=== PATIENT | female | born 1965 | race Caucasian/White ===

== ENCOUNTER 2025-09-15 08:48 | Emergency (ER) | payer MEDICARE, MEDICAID, SELFPAY ==
[2025-09-15 09:00] VITALS: BP 133/75; PULSE 57; RESP 20; TEMP 36.7; O2SAT 99
--- OUTSIDE RECORDS SUMMARY | 2025-09-15 09:07 | XMS_ITS | Clinical Summary ---
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 Role Phone Iam Garcia MD Primary Care Provider [phone] Allergies Active Allergy Reactions Criticality Noted Date Comments Penicillins Hives,Rash Medium Reaction: Hives, Skin Rash, Medications blood-glucose meter kit Use as directed to test blood sugars daily 1 each 10/04/20 18 Active albuterol 2.5 mg /3 mL (0.083 %) nebulizer solution Take 3 mL (2.5 mg total) by nebulization 4 (four) times a day as needed for wheezing or shortness of breath 125 vial 11 10/28/20 20 Active cetirizine (ZyrTEC) 10 mg tablet Take 1 tablet (10 mg total) by mouth daily Active blood glucose diagnostic (OneTouch Ultra Blue Test Strip) stripIndications:T ype 2 diabetes mellitus without complication, without long-term current use of insulin (HCC) Use to test blood sugar once daily. Dx: E11.9. Non insulin dependent 100 each 3 02/17/20 22 Active OneTouch Delica Plus Lancet 33 gauge miscIndications:Ty pe 2 diabetes mellitus without complication, without long-term current use of insulin (HCC) Use to check blood sugar once daily. Dx: E11.9 Non insulin Dependent 100 each 3 07/19/20 24 Active blood glucose diagnostic stripIndications:T ype 2 diabetes mellitus without complication, without long-term current use of insulin (HCC) Use to test blood sugars once daily 100 each 20 24 Active triamcinolone (KENALOG) 0.1 % creamIndications:R cabrera Apply topically 3 (three) times a day for 10 days 45 g 09/11/20 24 Active Additional Information Patient not taking.Reported on 06/25/2025 metFORMIN XR (GLUCOPHAGE XR) 500 mg 24 hr tablet TAKE 1 TABLET(500 MG) BY MOUTH DAILY 90 tablet 3 09/25/20 24 Active fluticasone propion-salmeteroL (ADVAIR DISKUS) 250-50 mcg/dose diskus inhaler Inhale 1 puff 2 (two) times a day Rinse mouth with water after use. Do not swallow. 1 each 11 09/25/20 Active Additional Information Patient not taking.Reported on 06/25/2025 fluticasone furoate-vilanteroL (Breo Ellipta) 200-25 mcg/dose diskus inhaler Inhale 1 puff daily Rinse mouth with water after use. Do not swallow. 60 each 09/25/20 Active Additional Information Patient not taking.Reported on 06/25/2025 SITagliptin phosphate (Januvia) 100 mg tabletIndications: Type 2 diabetes mellitus without complication, without long-term current use of insulin (HCC) Take 1 tablet (100 mg total) by mouth daily 90 tablet 3 04/04/20 25 Active meloxicam (MOBIC) 15 mg tabletIndications: Osteoarthritis Take 1 tablet (15 mg total) by mouth daily 30 tablet 11 05/01/20 25 026 Active atorvastatin (LIPITOR) 20 mg tabletIndications: Type 2 diabetes mellitus with hyperlipidemia (HCC) TAKE 1 TABLET(20 MG) BY MOUTH DAILY 100 tablet 1 06/07/20 25 Active diclofenac sodium (VOLTAREN) 1 % gelIndications:Art hritis of right knee APPLY 4 GRAMS TOPICALLY TO THE AFFECTED AREA FOUR TIMES DAILY 200 g 07/01/20 25 Active Active Problems Problem Noted Date Diagnosed Date Medicare annual wellness visit, subsequent 10/24 Assessment & Plan (10/24/2024 9:08 AM MARKETING PR INTERN): In regard to health maintenance, Colonoscopy- Declined Mammogram- UTD DM-annual visual examination and podiatry visits every 3 months advised. Influenza vaccine- declined Pneumococcal vaccine- declined Shingrix vaccine- declined ASCVD risk: 4.6% Eat a healthy diet: focus on lean meats and proteins, more fruits, vegetables and whole grains and low in sugars and fats. Limit red meat and avoid processed meat. Maintain a healthy weight; avoid being overweight. Aim for a normal body mass index (BMI) of 18.5-24.9. Help learning to eat healthier, we can set up appointment with auricular acupuncturist/medical appointment clerk. Have an active lifestyle, strive for 30 minutes of moderate exercise 5 times a week and strength or resistance training at least twice a week. Use broad-spectrum (UVA+UVB) sunscreen with SPF 30 or greater, is water resistant, limit time spent in the sun (10 am-4pm), wear hat, wear UV protective clothing, wear sunglasses. Never use a tanning bed. Skin that was irradiated may be more sensitive over your lifetime. Limit alcohol intake, 1 drink per day for a woman and 2 drinks per day for a man. Laceration of skin of forehead 08/23/2024 Assessment & Plan (08/23/2024 12:59 PM CDT): Instructed patient to avoid using l iquid bandage . Keep area clean and protected. Can use Aquaphor once area is more scabbed. Once healed stressed the need to use SPF to avoid scarring. Encounter for colorectal cancer screening 2022 Assessment & Plan (10/06/2023 8:14 AM MARKETING PR INTERN): Discussed colorectal cancer screening guidelines. No family history of colon cancers. Declines screening with colonoscopy; aware that it is gold standard for CRC screening. Patient is agreeable to cologuard. Aware that kit will be mailed with directions and to call office if not received in 2 weeks. To call office if no results received within 2 weeks of test submission. Foreign body of right ear 10/06/2023 Assessment & Plan (04/09/2024 8:32 AM CDT): Ismay/orange foreign body versus mass obstructing view of right TM. Nontender. No drainage. Denies any issues with hearing. Updated referral to ENT Assessment & Plan (10/06/2023 8:40 AM MARKETING PR INTERN): Probable ear plug? Right pink object in right canal. No surrounding erythema or drainage. TM appears intact. Unable to remove in office. Referral placed to ENT. Kidney stone 10/03/2022 Assessment & Plan (10/03/2022 2:24 PM MARKETING PR INTERN): Evaluated in ER 08/16/22, left ureter stone. Patient reports passing stone the next day. No further colic/pain/back pain or fevers. No urinary symptoms. Type 2 diabetes mellitus wit hout complication, without long-term current use of insulin 09/28/2021 Assessment & Plan (04/24/2025 10:16 AM CDT): Lab Results Component Value Date HGBA1C 7.6 (H) 04/10/2025 HGBA1C 7.4 (H) 09/25/2024 HGBA1C 7.8 (H) 03/29/2024 Slight increase in A1C admits to not working on diet like she should. Will continue on Januvia and Metformin. Will continue to monitor. Orders: Albumin Creatinine Ratio, Urine; Future Comprehensive metabolic panel; Future CBC with auto differential; Future Hemoglobin A1c; Future Assessment & Plan (10/24/2024 9:07 AM MARKETING PR INTERN): A1C improving but not at goal yet. Will continue to monitor. Will continue on Januvia and Metformin. Lab Results Component Value Date HGBA1C 7.4 (H) 09/25/2024 HGBA1C 7.8 (H) 03/29/2024 HGBA1C 7.2 (H) 07/04/2023 Assessment & Plan (04/09/2024 8:31 AM CDT): Not at goal, A1c = 7.8 %. Reviewed diet and exercise recommendations. Blood pressure is well controlled, 128/88. LDL cholesterol at goal. Scheduled for eye exam tomorrow at [facility]. Current medications Januiva 100 Metformin 500 once daily. Will increase metformin to 500 mg twice daily. Repeat labs in 6 months. Assessment & Plan (10/06/2023 8:33 AM MARKETING PR INTERN): Lab Results Component Value Date HGBA1C 7.2 (H) 07/04/2023 HGBA1C 8.1 (H) 03/30/2023 HGBA1C 6.7 10/03/2022 Periodically checking BG. Denies any symptoms of hypo/hyperglycemia. Monofilament exam completed today. Assessment & Plan (04/04/2023 1:45 PM CDT): Worsening; encouraged to work toward healthy lifestyle and diet changes as previously following. Lab Results Component Value Date HGBA1C 8.1 (H) 03/30/2023 HGBA1C 6.7 10/03/2022 HGBA1C 7.4 (H) 05/04/2022 Re-start metformin 500 mg once daily and continue Januvia 100 mg daily. Patient to check blood sugar daily and will repeat labs in 3 months. Current on eye exam. Blood pressure and cholesterol well controlled. Assessment & Plan (10/03/2022 2:27 PM MARKETING PR INTERN): Lab Results Component Value Date HGBA1C 6.7 10/03/2022 HGBA1C 7.4 (H) 05/04/2022 HGBA1C 6.7 09/28/2021 Has been working on diet, cut out sodas. Has increased exercise activity. Checking blood sugar periodically, average readings 90's-126 per glucometer. Continues januvia. Assessment & Plan (01/27/2022 5:57 PM CDT): Patient has continued Januvia. She denies any neuropathy. A1c has been at goal of <7%. Aware to schedule eye exam. Discussed changing medication to medication that provides additional benefit of weight loss, such as semaglutide. Patient would like to defer until her follow-up appointment. Lab Results Component Value Date HGBA1C 6.7 09/28/2021 HGBA1C 6.7 (H) 04/27/2021 HGBA1C 6.1 01/12/2021 Assessment & Plan (09/28/2021 8:42 AM MARKETING PR INTERN): Periodically checks BS. Doing well on januvia. Up to date on eye exam. Checking feet daily, denies neuropathy. Will continue to follow A1C. Lab Results Component Value Date HGBA1C 6.7 09/28/2021 HGBA1C 6.7 (H) 04/27/2021 HGBA1C 6.1 01/12/2021 Abnormal mammogram of right breast 01/03/2019 Type 2 diabetes mellitus with hyperlipidemia Assessment & Plan (04/24/2025 10:16 AM CDT): Stable and well controlled. Will continue on Atorvastatin. Will continue to monitor. Orders: Lipid panel; Future Assessment & Plan (10/24/2024 9:06 AM MARKETING PR INTERN): Lipid panel stable and well controlled with LDL at goal of <70. Will continue to take Atorvastatin. Will continue to monitor. Assessment & Plan (04/09/2024 8:29 AM CDT): Results for orders placed or performed in visit on 04/09/24 POCT lipid panel Result Value Ref Range Cholesterol, POC 123 mg/dL HDL, POC 36 mg/dL Triglycerides, POC 95 mg/dL LDL, Direct, POC 67 mg/dL Chol/HDL Ratio, POC 3.4 Non-HDL Cholesterol, POC 87 mg/dL Cholesterol Total, POC 123 mg/dL Stable, continue statin 20 mg daily. Refilled medication today. Assessment & Plan (10/06/2023 8:18 AM MARKETING PR INTERN): Stable; continue atorvastatin 20 mg daily. Assessment & Plan (04/04/2023 1:47 PM CDT): Taking atorvastatin 20 mg daily as prescribed. LDL=63 Assessment & Plan (10/03/2022 2:37 PM MARKETING PR INTERN): Doing well on atorvastatin 20 mg daily. Cholesterol well controlled on current regimen, patient is taking medication as prescribed and denies any SE's. Results for orders placed or performed in visit on 10/03/22 POCT hemoglobin A1c Result Value Ref Range Hemoglobin A1C, POC 6.7 POCT lipid panel Result Value Ref Range Cholesterol, POC 115 mg/dL HDL, POC 42 mg/dL Triglycerides, POC 134 mg/dL LDL, Direct, POC 46 mg/dL Chol/HDL Ratio, POC 1.1 Non-HDL Cholesterol, POC 73 mg/dL Cholesterol Total, POC 115 mg/dL Assessment & Plan (01/27/2022 5:43 PM CDT): Continue atorvastatin 20 mg daily. Patient denies any medication side effects, lipids have been well controlled. Will repeat lipid panel prior to next office visit in 3 months. Assessment & Plan (09/28/2021 8:54 AM MARKETING PR INTERN): Doing well on atorvastatin daily. Reviewed previous lipids, discussed diet and exercise recommendations. Assessment & Plan (12/26/2018 4:49 PM MARKETING PR INTERN): Diabetes is improving with treatment. Continue current treatment regimen. Diabetes will be reassessed in 3 months. Patient is losing weight, and following a diabetic diet. Her blood sugars are improving. Refused influenza vaccine 12/26/2018 Exposure to mold 12/26/2018 Assessment & Plan (12/26/2018 4:49 PM MARKETING PR INTERN): Patient reports exposure to mold at her house for approximately 1 year. She does not have any symptoms at this time. She did state that she had pneumonia several months back but symptoms have resolved. Since patient is not having any symptoms we will continue to monitor no further testing at this time. If she develops respiratory problems then I would recommend some testing for mold. Encounter for annual wellness exam in Medicare p atient 12/26/2018 Assessment & Plan (10/06/2023 8:39 AM MARKETING PR INTERN): Preventive exam; reviewed recommended preventive screenings and vaccinations. Encourage annual flu vaccine. -Cologuard ordered -encouraged to schedule a well-woman exam -mammogram ordered today Assessment & Plan (10/03/2022 2:23 PM MARKETING PR INTERN): Preventive exam; reviewed recommended preventive screenings and vaccinations. Encourage annual flu vaccine. Wear sunscreen/protective clothing when outdoors. Assessment & Plan (09/28/2021 8:42 AM MARKETING PR INTERN): Preventive exam; reviewed recommended preventive screenings and vaccinations. Encourage annual flu vaccine. Wear sunscreen/protective clothing when outdoors. Bronchitis 10/23/2018 Assessment & Plan (10/23/2018 12:32 PM MARKETING PR INTERN): Take your antibiotic as directed You may take a cough suppressant to calm your cough (dayquil, delsym, or nyquil) If your cough is productive or you have tight chest congestion with thick mucus- you can use a cough expectorant like Mucinex Benadryl/Zyrtec can be used to dry up a runny nose along with a nasal spray like azelastine or mometasone.. The use of Chlorpheniramine (antihistamine) plus pseudoephedrine (decongestant) has been proven to be helpful. Avoid environmental triggers and allergen Drink plenty of fluids and get plenty of rest Tylenol/Motrin for pain/fever If you are not better in the next 5 days, follow up w PCP. Asthma 09/28/2016 Assessment & Plan (04/24/2025 10:16 AM CDT): Stable and well controlled. Will continue to monitor. Continues on Albuterol PRN nebulizer and Breo Ellipta. Assessment & Plan (10/24/2024 9:06 AM MARKETING PR INTERN): Stable and well controlled. Denies any recent flare ups. Albuterol is rarely used. Assessment & Plan (04/09/2024 8:30 AM CDT): Doing well with Advair maintenance therapy. Denies any recent exacerbation, no recent use of albuterol inhaler. Assessment & Plan (04/04/2023 1:27 PM CDT): No recent exacerbation, has not required use of rescue inhaler. Assessment & Plan (10/03/2022 2:29 PM MARKETING PR INTERN): Using advair seasonally. No recent exacerbations, need for albuterol or night time coughing. Assessment & Plan (09/28/2021 8:58 AM MARKETING PR INTERN): Encouraged use of maintenance inhaler, reminded to rinse mouth after use. Lungs CTA on exam. No ongoing respiratory symptoms following recent covid infection. Will continue to monitor. Encouraged covid-19 and annual influenza vaccination. Assessment & Plan (10/23/2018 12:36 PM MARKETING PR INTERN): Asthma is worsening. The patient is experiencing frequent daytime asthma symptoms. She is experiencing frequent nighttime asthma symptoms. Asthma information handout given. Continue Advair daily Neb treatments with Albuterol Class 3 severe obesity due t o excess calories with serious comorbidity and body mass index (BMI) of 45.0 to 49.9 in adult 09/02/2016 Overview (02/10/2017): Morbid obesity due to excess calories Assessment & Plan (04/24/2025 10:16 AM CDT): Encouraged heart healthy diet and lifestyle. Advised 150 min/week of aerobic exercise. Assessment & Plan (10/24/2024 9:05 AM MARKETING PR INTERN): Encouraged heart healthy diet and lifestyle. Advised 150 min/week of aerobic exercise. Assessment & Plan (08/23/2024 1:00 PM CDT): Encourage healthy diet and regular physical activity. Assessment & Plan (04/04/2023 1:46 PM CDT): Re-gained 9 lbs, will continue to monitor. Stressed need to continue to follow diet changes and increase exercise. Assessment & Plan (10/03/2022 2:40 PM MARKETING PR INTERN): Has lost 12 lbs this past year. Working on diet changes. Discussed healthy diet and importance of regular physical activity. Assessment & Plan (01/27/2022 5:55 PM CDT): Discussed healthy diet and importance of regular physical activity. Assessment & Plan (09/28/2021 8:58 AM MARKETING PR INTERN): Discussed healthy diet and importance of regular physical activity. Assessment & Plan (01/09/2019 12:05 PM MARKETING PR INTERN): Obesity is improving with lifestyle modifications. Discussed the patient's BMI. The BMI is above average; BMI management plan is completed. General weight loss/lifestyle modification strategies discussed (elicit support from others; identify saboteurs; non-food rewards, etc). Assessment & Plan (12/26/2018 11:21 AM MARKETING PR INTERN): Obesity is improving with lifestyle modifications. Discussed the patient's BMI. The BMI is above average; BMI management plan is completed. General weight loss/lifestyle modification strategies discussed (elicit support from others; identify saboteurs; non-food rewards, etc). Diet= low-carb Limit white bread, rice, pasta, potatoes, juice, energy drinks, coffee creamers with sugar, sugar sodas, candy, cake, cookies, ice cream. Be more careful with starchy vegetables like corn, carrots, and fruits. Stay away from processed foods, fast foods, fried foods. The cornerstone of this diet is lean grilled meats, green salads or cooked greens, fat-free milk, cottage cheese, nuts like [id number], protein bars with 10-15 g of protein and 20-30 g of carbohydrate. Choose whole grain breads and pastas, brown rice, sweet potatoes, read onions--these whole grains absorb more slowly thus blood sugar does not surge so high so quickly. Avoid drinking juice, eat a piece of fruit instead. Resolved Problems Problem Noted Date Diagnosed Date Resolved Date Left ear impacted cerumen 12/26/2018 Assessment & Plan (01/09/2019 10:18 AM MARKETING PR INTERN): Excessive Ear Wax Prevention Cerumen accumulation or excessive ear wax can cause symptoms like-Hearing loss ?Earache ?Ear fullness ?Itchiness ?Reflex cough ?Dizziness ?Tinnitus Normal ears use a cotton ball dipped in mineral oil, olive oil, Baby oil, or Braidwood oil and place in the external canal for 10 to 20 minutes once per week. For Chronic cerumen impactions can perform on a scheduled baseis-3 drops of olive oil or Baby oil in each ear, three times daily for Three weeks, Three times per year. Routine cleaning of the ears by a health professional every 6 to 12 months is also suggested. Patients should be instructed that chronic use of cotton swabs or cerumenolytics should not be performed. Cerumenolytics are safe to use in patients with NO history of infections, perforations, or otologic surgery. Cerumenolytics should be avoided if tympanic membrane damage is suspected. If a patient has a history of drainage from the ear, ear pain, or frequent ear infections earlier in life, then the tympanic membrane may be impaired and cerumenolytics should not be employed. If safe for you, use Debrox drops, Hydrogen peroxide or Benzalkonium Chloride softening agents Assessment & Plan (12/26/2018 11:17 AM MARKETING PR INTERN): Excessive Ear Wax Prevention Cerumen accumulation or excessive ear wax can cause symptoms like-Hearing loss ?Earache ?Ear fullness ?Itchiness ?Reflex cough ?Dizziness ?Tinnitus Normal ears use a cotton ball dipped in mineral oil, olive oil, Baby oil, or Braidwood oil and place in the external canal for 10 to 20 minutes once per week. For Chronic cerumen impactions can perform on a scheduled baseis-3 drops of olive oil or Baby oil in each ear, three times daily for Three weeks, Three times per year. Routine cleaning of the ears by a health professional every 6 to 12 months is also suggested. Patients should be instructed that chronic use of cotton swabs or cerumenolytics should not be performed. Cerumenolytics are safe to use in patients with NO history of infections, perforations, or otologic surgery. Cerumenolytics should be avoided if tympanic membrane damage is suspected. If a patient has a history of drainage from the ear, ear pain, or frequent ear infections earlier in life, then the tympanic membrane may be impaired and cerumenolytics should not be employed. If safe for you, use Debrox drops, Hydrogen peroxide or Benzalkonium Chloride softening agents Other constipation 12/26/2018 1 Assessment & Plan (12/26/2018 4:48 PM MARKETING PR INTERN): Patient reports being constipated since Monday. She states that she is unsure if it is because of her diet changing with her diabetes. She denies abdominal pain, nausea, vomiting. She is passing gas and belching fine. Her abdomen is not distended firm or hard. Recommend that she increase her fluid intake, try some juice like apple, grave, or prune juice. Try drinking hot tea or hot coffee. Viral upper respiratory tract infection 12/29/2016 12/26/2018 Overview (02/10/2017): Viral upper respiratory tract infection Wheezing 12/29/2016 12/26/2018 Overview (02/10/2017): Wheezing Acute streptococcal pharyngitis 12/29/2016 09/28/2021 Overview (02/10/2017): Strep throat Chronic mucoid otitis media 09/02/2016 09/28/2021 Overview (02/10/2017): Bilateral otitis media with effusion Acute upper respiratory infection 09/02/2016 09/28/2021 Overview (02/10/2017): Upper respiratory infection, acute Encounters Date Type Department Care Team Description 06/30/2025 3:11 PM CDT - 06/30/2025 11:59 PM CDT Hospital Encounter [facility] [address] [place] [address] Screening mammogram, encounter for Discharge Disposition: Discharge to home or self care 06/25/2025 3:00 PM CDT Office Visit [facility] [address] [place] [address] [place] [id number] Jo Ann Sims PA Primary osteoarthritis of right knee (Primary Dx) 06/25/2025 7:43 AM CDT - 06/25/2025 11:59 PM CDT Hospital Encounter [facility] [address] [place] [address] [address], [place] [address] Discharge Disposition: Discharge to home or self care 06/25/2025 7:43 AM CDT - 06/25/2025 11:59 PM CDT Hospital Encounter [facility] [address] [place] [address] [address], [place] [address] Discharge Disposition: Discharge to home or self care from Last 3 Months Immunizations Immunization Administration Dates Next Due Influenza, Quadrivalent, Spl it, Preservative Free, Intramuscular 07/23/2015 Influenza, Unspecified 04/24/2025(Deferr ed: Patient Refused),04/24/2025(Deferred: Patient Refused),10/24/2024(Deferred: Patient Refused),08/23/2024(Deferred: Patient Refused),07/07/2024(Deferred: Patient Refused),07/07/2024(Deferred: Patient Refused),04/09/2024(Deferred: Patient Refused),10/06/2023(Deferred: Patient Refused),08/06/2023(Deferred: Patient Refused),07/07/2023(Deferred: Patient Refused),10/03/2022(Deferred: Patient Refused),08/06/2022(Deferred: Patient Refused),08/06/2022(Deferred: Patient Refused),08/06/2022(Deferred: Patient Refused),05/20/2022(Deferred: Patient Refused),11/06/2021(Deferred: Patient Refused),08/06/2021(Deferred: Patient Refused),08/06/2021(Deferred: Patient Refused),07/07/2021(Deferred: Patient Refused),04/21/2021(Deferred: Patient Refused),01/12/2021(Deferred: Patient Refused),11/06/2020(Deferred: Patient Refused),12/09/2019(Deferred: Patient Refused),11/06/2019(Deferred: Patient Refused),11/06/2019(Deferred: Patient Refused),11/06/2019(Deferred: Patient Refused),10/06/2019(Deferred: Patient Refused),01/09/2019(Deferred: Patient Refused),12/26/2018(Deferred: Patient Refused),11/06/2018(Deferred: Patient Refused),08/21/2018(Deferred: Patient Refused),11/13/2017(Deferred: Patient Refused),11/06/2017(Deferred: Patient Refused),11/06/2017(Deferred: Patient Refused) Pneumococcal Polysaccharide PPV23 09/17/2014 Surgical History Surgery Date Site/Laterality Comments NO PAST SURGERIES Medical History Medical History Date Comments Severe persistent asthma 2004 Asthma, severe persistent; Comments: SAMAN 09/17/2014 - Hx Other Medical kidney stones; Comments: LEXII 10/04/2016 - Diabetes mellitus Chronic mucoid otitis media Obesity Family History Medical History Relation Name Comments Diabetes Brother Diabetes mellit us; Other Father hip replacement s; /knee replacements; Hypertension Mother Hypertension; Cancer Other 1 Family history of Cancer, unknown; Arthritis Other 2 Family history of Arthritis; Breast cancer Paternal cousin Thyroid disease Sister Thyroid diso rder; Ovarian cancer Neg Hx Thyroid cancer Neg Hx Relation Name Status Comments Brother Father Alive Mother Alive Other 1 Other 2 Paternal cousin Sister Social History Tobacco Use Types Packs/Day Years Used Date Smoking Tobacco: Never Smokeless Tobacco: Never Tobacco Cessation:Counseling Given: Not Answered Alcohol Use Standard Drinks/Week Comments No 0 (1 standard drink = 0.6 oz pur e alcohol) [facility] [employer] Answer Date Recorded In the past 12 months has [employer], gas, oil, or water [employer] threatened to shut off services in your home? No 04/24/2025 Humiliation, Afraid, Rape, and Kick questionnair e Answer Date Recorded Within the last year, have y ou been afraid of your partner or ex-partner? No 04/24/2025 Within the last year, have y ou been humiliated or emotionally abused in other ways by your partner or ex-partner? No Within the last year, have y ou been kicked, hit, slapped, or otherwise physically hurt by your partner or ex-partner? No 04/24/2025 Within the last year, have y ou been raped or forced to have any kind of sexual activity by your partner or ex-partner? No 04/24/2025 Social Connection and Isolation Panel Answer Date Recorded In a typical week, how many times do you talk on the phone with family, friends, or neighbors? More than three times a week 04/24/2025 How often do you get togethe r with friends or relatives? More than three times a week 04/24/2025 How often do you attend [facility] or protestant services? More than 4 times per year 04/24/2025 Do you belong to any clubs o r organizations such as gnosticist groups, unions, fraternal or athletic groups, or school groups? No 04/24/2025 How often do you attend meet ings of the clubs or organizations you belong to? Never 04/24/2025 Are you , , di vorced, , never , or living with a partner? 04/24/2025 Overall Financial Resource Strain (CARDIA) Answe r Date Recorded How hard is it for you to pa y for the very basics like food, housing, medical care, and heating? Not hard at all 04/24/2025 PHQ-2 Answer Date Recorded PHQ-2 Total Score (If total score is 3 or more points, staff should administer the PHQ-9) 0 04/24/2025 [facility] - Occupational Stress Questionnaire Answer Date Recorded Do you feel stress - tense, restless, nervous, or anxious, or unable to sleep at night because your mind is troubled all the time - these days? Only a little 04/24/2025 Exercise Vital Sign Answer Date Recorde d On average, how many days pe r week do you engage in moderate to strenuous exercise (like a brisk walk)? 7 days 04/24/2025 On average, how many minutes do you engage in exercise at this level? 30 min 04/24/2025 Hunger Vital Sign Answer Date Recorded Within the past 12 months, y ou worried that your food would run out before you got the money to buy more. Never true 04/24/20 25 Within the past 12 months, t he food you bought just didn't last and you didn't have money to get more. Never true 04/24/2025 PRAPARE - Transportation Answer Date Re corded In the past 12 months, has l ack of transportation kept you from medical appointments or from getting medications? No 04/06 In the past 12 months, has l ack of transportation kept you from meetings, work, or from getting things needed for daily living? No 04/24/2025 PHQ-9 Answer Date Recorded PHQ-9 Total Score 0 04/24/2025 Housing Stability Vital Sign Answer Cem e Recorded In the last 12 months, was t here a time when you were not able to pay the mortgage or rent on time? No 04/24/2025 In the past 12 months, how m any times have you moved where you were living? 0 04/24/2025 At any time in the past 12 m [facility], were you homeless or living in a longterm (including now)? No 04/24/2025 AUDIT-C Answer Date Recorded Q1: How often do you have a drink containing alc ohol? Never 06/25/2025 Average Number of Drinks Not on file 025 Frequency of Binge Drinking Not on file 06/07 Personal Safety Answer Date Recorded Have you ever been in or are you currently in a harmful physical or emotional relationship or is someone making you feel afraid or unsafe? 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 INTERN Gender Identity Not on file Sexual Orientation Not on file Obstetrics History Para Term AB IAB SAB Ectopic Multiple Livin g Live Births 2 2 2 2 Date Outcome GA Total Labor Labor/2nd/3rd Weight Sex Type Anes PTL Lakshmi A1 A5 Name Clin Term Term Last Filed Vital Signs Vital Sign Reading Time Taken Comments Blood Pressure 130/67 06/25/2025 3:15 PM CDT Pulse 51 06/25/2025 3:15 PM CDT Temperature 37 C (98.6 F) 09/11/2024 2:35 PM MARKETING PR INTERN Respiratory Rate 18 04/24/2025 9:24 AM CDT Oxygen Saturation 96% 04/24/2025 9:24 AM CDT Inhaled Oxygen Concentration - - Weight 110.7 kg (244 lb) 06/30/2025 3:15 PM CDT Height 157.5 cm (5' 2) 06/30/2025 3:15 PM CDT Body Mass Index 44.63 06/30/2025 3:15 PM CDT Plan of Treatment Health Maintenance Due Date Last Done Comments Cervical Cancer Screening 1966 Hepatitis C Screening 1966 DTaP/Tdap/Td Vaccine (1 - Tdap) 1977 Hepatitis B Screening 1984 Pneumococcal vaccine <65 (2 of 2 - PCV) 09/17/2015 09/17/2014 Zoster Vaccine (1 of 2) 2016 Foot Exam 10/06/2024 10/06/2023, 05/06, 04/21/2021, Additional history exists Albumin Creatinine Ratio, Urine 04/09/2025 04/09/2024, 03/02/2023, 05/04/2022, Additional history exists Hemoglobin A1C 10/10/2025 04/10/2025, 09/07, 03/29/2024, Additional history exists Regular Well Visit/Exam 18-64 10/24/2025, 10/06/2023, 10/03/2022, Additional history exists Lipid Panel 04/10/2026 04/10/2025, 09/07, 04/09/2024, Additional history exists eGFR 04/10/2026 04/10/2025, 09/07, 03/29/2024, Additional history exists Depression Screening 04/24/2026 04/24/2025, 04/24/2025, 04/24/2025, Additional history exists Breast Cancer Screening-Mammogram 06/30/2026 06/30/2025, 05/29/2024, 08/16/2022, Additional history exists Colon Cancer Screening-DNA Stool 10/13/2026 10/13/20 23, 07/13/2020 Dilated Eye Exam 04/19/2027 04/19/2025, , 12/11/2020, Additional history exists Influenza Vaccine Discontinued 07/23/2015 Colon Cancer Screening-FIT Discontinued 10/13/2023, Procedures Procedure Name Priority Date/Time Associated Diagnosis Comments SCREENING MAMMOGRAM BILATERAL W LEWIS Schedule Routine, Read Routine (OP Routine) 06/30/2025 3:24 PM CDT Screening mammogram, encounter for XR PELVIS 1 OR 2 VIEWS Schedule Routine, Read Routine (OP Routine) 06/25/2025 3:11 PM CDT Primary osteoarthritis of right knee XR KNEE RIGHT 4 OR MORE VIEWS Schedule Routine, Read Routine (OP Routine) 06/25/2025 3:11 PM CDT Primary osteoarthritis of right knee DIABETIC EYE EXAM Routine 04/19/2025 9:4 6 AM CDT EGFR Routine 04/10/2025 1:10 PM CDT Type 2 diabetes mellitus without complication, without long-term current use of insulin (HCC) HEMOGLOBIN A1C Routine 04/10/2025 1:10 PM CDT Type 2 diabetes mellitus without complication, without long-term current use of insulin (HCC) LIPID PANEL Routine 04/10/2025 1:10 PM CDT Type 2 diabetes mellitus with hyperlipidemia (HCC) ALBUMIN CREATININE RATIO, URINE Routine 04/09/2024 8:14 AM CDT Type 2 diabetes mellitus with hyperlipidemia (HCC) STOOL DNA COLOGUARD Routine 10/13/2023 9:58 AM MARKETING PR INTERN Encounter for colorectal cancer screening from Last 3 Months or Most Recently Relevant to Health Maintenance Results * Screening Mammogram Bilateral W Lewis (06/30/2025 3:24 PM CDT) Anatomical Region Laterality Modality Breast Bilateral Mammography Impressions 06/30/2025 3:35 PM CDT Bilateral No evidence of malignancy in either breast. OVERALL BI-RADS FINAL ASSESSMENT: 1 - Negative RECOMMENDATION: Recommend bilateral annual screening mammography. Narrative 06/30/2025 3:35 PM CDT EXAMINATION: Screening Mammogram Bilateral W Lewis: 06/30/2025 COMPARISON: Relevant prior studies available at the time of interpretation were reviewed, including the most recent mammogram on: 05/29/2024. TECHNIQUE: Mammography was performed with 2D and 3D digital breast tomosynthesis (DBT) images. CAD was utilized. BREAST PARENCHYMAL COMPOSITION: There are scattered areas of fibroglandular density. FINDINGS: Bilateral There is no suspicious mass, calcification, or architectural distortion in either breast. us Self Screening Mammogram IMG MAMMO PROCEDURES Fi nal Result * XR Pelvis 1 or 2 Views (06/25/2025 3:11 PM CDT) Anatomical Region Laterality Modality Body, Pelvis N/A Digital Radiogra phy Narrative 07/11/2025 2:19 PM CDT Radiographs of the pelvis is reviewed and interpreted. No acute fractures or destructive osseous lesions. Degenerative joint changes are seen of the bilateral femoral acetabular joints including joint space narrowing and osteophyte formation Jo Ann ABREU IMG XR PROCEDURES Final Result * XR Knee Right 4 or More Views (06/25/2025 3:11 PM CDT) Anatomical Region Laterality Modality Lower Extremities, Knee Right Digital Radiography Narrative 07/11/2025 2:18 PM CDT Weightbearing views of the right knee are reviewed and demonstrate no acute fractures or destructive osseous lesions. Tricompartmental degenerative changes present with joint space narrowing, osteophyte formation, and subchondral sclerosis. Bone on bone changes medial compartment with varus deformity Jo Ann ABREU IMG XR PROCEDURES Final Result * Diabetic Eye Exam (04/19/2025 9:46 AM CDT) Historical Provider HEALTH MAINTENANCE Final Result * eGFR (04/10/2025 1:10 PM CDT) eGFR 79 >=60 mL/min/1. 73 m2 Comment: Interpretive Data Reference Interval Normal >/= 90 mL/min/1.73m2 Mildly decreased* 60 - 89 mL/min/1.73m2 Mildly to moderately decreased 45 - 59 mL/min/1.73m2 Moderately to severely decreased 30 - 44 mL/min/1.73m2 Severely decreased 15 - 29 mL/min/1.73m2 Kidney Failure < 15 mL/min/1.73m2 *Relative to young adult level Estimated glomerular filtration rate is determined by the 2020 CKD-EPI equation recommended by the National Kidney Foundation (A Unifying Approach to GFR Estimation: Recommendations of the NKF-ASK Task Force on Reassessing the Inclusion of Race in Diagnosing Kidney Disease, JASN 2020). The CKD-EPI equation should not be used for patients with unstable renal function and has not been validated in children and those over 70. Current interpretive data was last reviewed 2021. Testing performed by: [facility], [address] [place] [address]., [id number] Blood 04/10/2025 1:10 PM CDT 04/10/2025 7:31 PM CDT Chika Vitale COMMERCIAL OCEAN CLAMMER LAB BLOOD ORDERABLES Final Re sult Performing Organization Address City/[facility] Co de Phone Number STEFAN IRWIN ([place]) [address] [place] [address] [place] [address] * (ABNORMAL) Hemoglobin A1c (04/10/2025 1:10 PM CDT) Hgb A1C 7.6(H) 4.0 - 5.6 % Comment:Testing performed by : [facility], [address] [place] [address]., [id number] Estimated Average Glucose 171 mg/dL STEFAN [facility] ([place]) Comment: The ADA recommends reporting an estimated Average Glucose (eAG) with all Hemoglobin A1c results using the equation derived from a study of 507 normal and diabetic adults. Minority populations were underrepresented and children were not included. (Diabetes Care 31:5840-2482, 2008). The eAG is not equivalent to a fasting glucose. Testing performed by: [facility], [address] [place] [address]., [id number] Blood 04/10/2025 1:10 PM CDT 04/10/2025 6:58 PM CDT Chika Vitale NP LAB BLOOD ORDERABLES Final Re sult Performing Organization Address [facility] Co de Phone Number STEFAN IRWIN ([place]) [address] [facility] [place] [address] * (ABNORMAL) Lipid panel (04/10/2025 1:10 PM CDT) Cholesterol 133 30 - 199 mg/dL Comment: Interpretive Data Ages < or = 19 years Acceptable: <170 mg/dL Borderline high: 170-199 mg/dL High: >or= 200 mg/dL Ages > or = 20 years Desirable: <200 mg/dL Borderline high: 200-239 mg/dL High: >or= 240 mg/dL Literature References: 1. Expert Panel on Integrated Guidelines for Cardiovascular Health and Risk Reduction in Children and Adolescents. Pediatrics 2011;128:S213 2. NCEP Expert Panel. Circulation 2004;110:227 Current Interpretive Data was last revised on 2018. Testing performed by: [facility], [address] [place] [address]., [address] Triglycerides 170(H) <=149 mg/dL [facility] ([place]) Comment: Interpretive Data Ages < or = 9 years Acceptable: <75 mg/dL Borderline high: 75-99 mg/dL High: >or= 100 mg/dL Ages 10 to 20 years Acceptable: <90 mg/dL Borderline high: 90-129 mg/dL High: >or= 130 mg/dL Ages > or = 20 years Desirable: <150 mg/dL Borderline high: 150-199 mg/dL High: 200-499 mg/dL Very high: >or= 499 mg/dL Literature References: 1. Expert Panel on Integrated Guidelines for Cardiovascular Health and Risk Reduction in Children and Adolescents. Pediatrics 2011;128:S213 2. NCEP Expert Panel. Circulation 2004;110:227 Current Interpretive Data was last revised on 2018. Testing performed by: [facility], [address] [place] [address]., [address] HDL 35(L) >=40 mg/dL [facility] ([place]) Comment: Interpretive Data Ages < or = 19 years Acceptable: >45 mg/dL Borderline low: 40-45 mg/dL Low: <40 mg/dL Ages > or = 20 years Desirable: >or= 60 mg/dL Low: <40 mg/dL Literature References: 1. Expert Panel on Integrated Guidelines for Cardiovascular Health and Risk Reduction in Children and Adolescents. Pediatrics 2011;128:S213 2. NCEP Expert Panel. Circulation 2004;110:227 Current Interpretive Data was last revised on 2018. Testing performed by: [address] [address] LDL, calculated 69 <=129 mg/dL [facility] ([place]) Comment: Interpretive Data Ages < or = 19 years Acceptable: <110 mg/dL Borderline high: 110-129 mg/dL High: >or= 130 mg/dL Ages > or = 20 years Optimal: <100 mg/dL Near optimal: 100-129 mg/dL Borderline high: 130-159 mg/dL High: >160 mg/dL Calculated using the Jacobo LDL-C estimating equation. This equation was implemented on 2024. Prior to this date LDL-C was estimated using the Friedewald equation. Literature References: 1. Expert Panel on Integrated Guidelines for Cardiovascular Health and Risk Reduction in Children and Adolescents. Pediatrics 2011;128:S213 2. NCEP Expert Panel. Circulation 2004;110:227 3. Jacobo Flannery et al. JUAN ANTONIO Cardiol. 2020 March 06;5(5):540-548. doi: 10.1001/[email or web address].[email or web address] Current Interpretive Data was last revised on 2024. Testing performed by: [address] [address] Non-HDL Cholesterol 98 mg/dL STEFAN IRWIN ([place]) Comment: Interpretive Data Ages < or = 19 years Acceptable: <120 mg/dL Borderline high: 120-144 mg/dL High: >145 mg/dL Ages > or = 20 years When triglycerides are >200 mg/dL, Non-HDL cholesterol is a secondary target of therapy with treatment goals that are 30 mg/dL greater than the LDL cholesterol target. Literature References: 1. Expert Panel on Integrated Guidelines for Cardiovascular Health and Risk Reduction in Children and Adolescents. Pediatrics 2011;128:S213 2. NCEP Expert Panel. Circulation 2004;110:227 Current Interpretive Data was last revised on 2018. Testing performed by: [address] [address] Chol/HDL ratio 4 LU IRWIN ([place]) Comment:Testing performed by : [address] [address] Blood 04/10/2025 1:10 PM CDT 04/10/2025 6:58 PM CDT us Chika Vitale NP LAB BLOOD ORDERABLES Final Re sult STEFAN IRWIN ([place]) 1 [facility] Department [place] [address] * Albumin Creatinine Ratio, Urine (04/09/2024 8:14 AM CDT) Albumin Ur 13.4 mg/L Comment: Interpretive Data No reference range established. Current interpretive data was last revised 2019. Creatinine Ur 124.4 mg/dL [facility] Comment: Interpretive Data No reference range established. Current interpretive data was last revised 2019. Albumin Creatinine Ratio, Ur 11 1 - 29 mg/g [facility] Urine 04/09/2024 8:14 AM CDT 04/09/2024 2:46 PM CDT Hue Funez NP LAB URINE ORDERABLES Final Result [facility] [address] [address] Department [place] [address] * Stool DNA - Cologuard (10/13/2023 9:58 AM MARKETING PR INTERN) Pathologist [facility] Stool DNA - Cologuard Negative Negative [employer] (CLIA #:[id number]) Comment: NEGATIVE TEST RESULT. A negative Cologuard result indicates a low likelihood that a colorectal cancer (CRC) or advanced adenoma (adenomatous polyps with more advanced pre-malignant features) is present. The chance that a person with a negative Cologuard test has a colorectal cancer is less than 1 in 1500 (negative predictive value >99.9%) or has an advanced adenoma is less than 5.3% (negative predictive value 94.7%). These data are based on a prospective cross-sectional study of 10,000 individuals at average risk for colorectal cancer who were screened with both Cologuard and colonoscopy. (Efrain Gloria al, N Engl J Med 2014;370(14):2036-0087) The normal value (reference range) for this assay is negative. COLOGUARD RE-SCREENING RECOMMENDATION: Periodic colorectal cancer screening is an important part of preventive healthcare for asymptomatic individuals at average risk for colorectal cancer. Following a negative Cologuard result, the [place] Cancer Society and U.S. Multi-Society Task Force screening guidelines recommend a Cologuard re-screening interval of 3 years. References: [place] Cancer Society Guideline for Colorectal Cancer Screening: https://www.cancer.org/cancer/ledhl-poampn-xwahfr/hlcceiezb-zxzjobaeg-dwkemkw/ac s-rec ommendations.html.; Britton DK, Maykel LUBIN, Rock ARCINIEGA, Colorectal Cancer Screening: Recommendations for Physicians and Patients from the U.S. Multi-Society Task Force on Colorectal Cancer Screening , Am J Gastroenterology 2017; 112:9065-0453. TEST DESCRIPTION: Composite algorithmic analysis of stool DNA-biomarkers with hemoglobin immunoassay. Quantitative values of individual biomarkers are not reportable and are not associated with individual biomarker result reference ranges. Cologuard is intended for colorectal cancer screening of adults of either sex, 45 years or older, who are at average-risk for colorectal cancer (CRC). Cologuard has been approved for use by the U.S. FDA. The performance of Cologuard was established in a cross sectional study of average-risk adults aged 50-84. Cologuard performance in patients ages 45 to 49 years was estimated by sub-group analysis of near-age groups. Colonoscopies performed for a positive result may find as the most clinically significant lesion: colorectal cancer [4.0%], advanced adenoma (including sessile serrated polyps greater than or equal to 1cm diameter) [20%] or non- advanced adenoma [31%]; or no colorectal neoplasia [45%]. These estimates are derived from a prospective cross-sectional screening study of 10,000 individuals at average risk for colorectal cancer who were screened with both Cologuard and colonoscopy. (Efrain Trivedi et al, N Engl J Med 2014;370(14):8117-2136.) Cologuard may produce a false negative or false positive result (no colorectal cancer or precancerous polyp present at colonoscopy follow up). A negative Cologuard test result does not guarantee the absence of CRC or advanced adenoma (pre-cancer). The current Cologuard screening interval is every 3 years. ([place] Cancer Society and U.S. Multi-Society Task Force). Cologuard performance data in a 10,000 patient pivotal study using colonoscopy as the reference method can be accessed at the following location: www.beStylish.com/results. Additional description of the Cologuard test process, warnings and precautions can be found at www.cologuard.com. Stool 10/13/2023 9:58 AM MARKETING PR INTERN 10/14/2023 3:06 PM MARKETING PR INTERN Hue Funez NP LAB BODY FLUIDS AND STOOLS ORDERABLES Final Result [facility] (CLIA #:[id number]) [place] [address] from Last 3 Months or Most Recently Relevant to Health Maintenance Insurance [facility] MEDICARE MEDICARE [facility] Address: [facility] [address] [place] [address] IDPA Care Teams Military Aircraft Designer Relationship Specialty Start Date End Date Iam Garcia MD [address] [place] [address] PCP - General 02/03/17
--- OUTSIDE RECORDS SUMMARY | 2025-09-15 09:07 | XMS_ITS | Clinical Summary ---
Author Organization [facility] Address [address] [place] [address] Care Team Providers Care Cad Intern Name Role Phone Unavailable Primary Care Provider Unavailabl e Source Comments [facility],non-owned Affiliates and Associated Physician Practices is amultiple site organization consisting of ambulatory clinics and hospital sitesin [place], [place], [place] and [place]. This disclosure is being madepursuant to the Care Everywhere program and may not contain all information available regarding this patient. Last updated 18.[facility] Allergies No known active allergies Medications * Be aware that medications may not be up to date on this document. Alwaysverify current medications with the patient. ALBUTEROL IN Active Fluticasone-Salmet meme (ADVAIR DISKUS IN) Active Active Problems Problem Noted Date Diagnosed Date Asthma 09/28/2016 Social History Tobacco Use Types Packs/Day Years Used Date Smoking Tobacco: Never Assessed Comments Unknown Sex and Gender Information Value Date Recorded Sex Assigned at Not on file Legal Sex Female 8:07 AM OFFICE CLERK Gender Identity Not on file Sexual Orientation Not on file Last Filed Vital Signs Vital Sign Reading Time Taken Comments Blood Pressure 126/72 09/28/2016 8:43 AM OFFICE CLERK Pulse 60 09/28/2016 8:43 AM OFFICE CLERK Temperature 37.1 C (98.8 F) 09/28/2016 8:43 AM OFFICE CLERK Respiratory Rate 18 09/28/2016 8:43 AM OFFICE CLERK Oxygen Saturation 96% 09/28/2016 8:43 AM OFFICE CLERK Inhaled Oxygen Concentration - - Weight 122.5 kg (270 lb) 09/28/2016 8:43 AM OFFICE CLERK Height 154.9 cm (5' 1) 09/28/2016 8:43 AM OFFICE CLERK Body Mass Index 51.02 09/28/2016 8:43 AM OFFICE CLERK Plan of Treatment Health Maintenance Due Date Last Done Comments COLOGUARD (AGES 45-75) - COL ON CA SCREENING 1966 COLON MONITORING 1966 COLONOSCOPY - COLON CA SCREENING 1966 CT COLONOGRAPHY - COLON CA SCREENING 1966 Colorectal Cancer Screening 1966 FIT - COLON CA SCREENING 1966 FLEX SIG - COLON CA SCREENING 1966 LIPID TESTING 1966 MAMMOGRAM 1966 HIV SCREENING 1981 HEPATITIS C SCREENING 04/17/1984 DTAP/TDAP/TD VACCINES (1 - Tdap) 1985 HEPATITIS B VACCINE (1 of 3 - 19+ 3-dose series) 1985 PNEUMOCOCCAL VACCINE 50+ (1 of 1 - PCV) 2016 ZOSTER VACCINE (1 of 2) 2016 DEPRESSION SCREENING 11/06/2024 COVID-19 VACCINE (1 - 2023-2 5 season) 2025 INFLUENZA VACCINE (#1) 2025 HIB VACCINE Aged Out No longer eligi ble based on patient's age to complete this topic HPV VACCINE Aged Out No longer eligi ble based on patient's age to complete this topic MENINGOCOCCAL (Group B) VACC INE SHARED DECISION-MAKING Aged Out No longer eligibl e based on patient's age to complete this topic MENINGOCOCCAL GROUPS A/C/Y/W VACCINE Aged Out No longer eligible b ased on patient's age to complete this topic Insurance [address] [address] MEDICARE MEDICARE MEDICAID - OUT OF STATE
--- OUTSIDE RECORDS SUMMARY | 2025-09-15 09:07 | XMS_ITS | Clinical Summary ---
Author Organization [facility] Address [address] [place] [address] Phone Care Team Providers Care Fiberglass Technician Name Role Phone Iam Garcia MD Primary Care Provider [phone] Allergies Active Allergy Reactions Criticality Noted Date Comments Penicillin G Rash 08/16/2022 Medications HYDROcodone-jayla taminophen (NORCO) 5-325 MG TabletIndicatio ns:Left ureteral stone Take 1 Tablet by mouth every 8 hours as needed for Moderate or more severe pain. 12 Tablet 08/16/2022 Active predniSONE (DELTASONE) 50 MG Tablet Take 1 Tablet by mouth daily. 5 Tablet 02/22/2025 Active Social History Tobacco Use Types Packs/Day Years Used Date Smoking Tobacco: Never Assessed Comments Unknown Sex and Gender Information Value Date Recorded Sex Assigned at Not on file Legal Sex Female 8:11 PM CDT Gender Identity Not on file Sexual Orientation Not on file Last Filed Vital Signs Vital Sign Reading Time Taken Comments Blood Pressure 139/75 02/22/2025 8:00 AM CDT Pulse 57 02/22/2025 8:00 AM CDT Temperature 36.2 C (97.2 F) 02/22/2025 7:31 AM CDT Respiratory Rate 14 02/22/2025 7:32 AM CDT Oxygen Saturation 97% 02/22/2025 8:00 AM CDT Inhaled Oxygen Concentration - - Weight 113.4 kg (250 lb) 02/22/2025 7:31 AM CDT Height 154.9 cm (5' 1) 02/22/2025 7:31 AM CDT Body Mass Index 47.24 02/22/2025 7:31 AM CDT Plan of Treatment Health Maintenance Due Date Last Done Comments Hepatitis C Virus (HCV) Screening 1966 TdaP Immunization 1966 Hepatitis B Immunization (1 of 3 - 19+ 3-dose series) 1985 Pap Smear 1987 Medicare Initial AWV [id number] 08/06/1995 Cervical Cancer Screening (CCS) 1996 HPV/Cotest 1996 Cologuard 2011 Colonoscopy 2011 Colorectal Cancer Screening 2011 Immunochemical Fecal Occult Blood 2011 Pneumococcal Immunization (50+ years) (2 of 2 - PCV) 2016 09/17/2014 Respiratory Syncytial Virus (RSV) Immunization (Adult) (1 - Risk 50-74 years 1-dose series) 2016 Zoster Immunization (1 of 2) 2016 Mammogram 05/29/2025 05/29/2024, 08/06, 07/20/2021, Additional history exists Influenza Immunization (#1) 2025 07/23/2015 SARS-COV-2 Immunization ( season) 2025 Pneumococcal Immunization Combined Discontinued 09/17/2014 Human Papillomavirus (HPV) Immunization Aged Out No longer eligible based on patient's age to complete this topic Meningococcal Immunization (ACWY) Aged Out No longer eligible based on patient's age to complete this topic Rotavirus Immunization Aged Out No lo nger eligible based on patient's age to complete this topic Insurance MEDICAID [place] MEDICARE Care Teams Fiberglass Technician Relationship Specialty Start Date End Date [place] [address] PCP - General Internal Medicine 09/09/21
--- NOTE | 2025-09-15 09:31 | ED_ITS ---
HPI - URI/Sore Throat General Chief Complaint: Upper Respiratory Infection Stated Complaint: dry cough/sore throat/right ear History of Present Illness HPI Narrative: patient is a 60-year-old female, past medical history significant for diabetes and hyperlipidemia, presents to [facility] with 3-5 day history of URI symptoms, initially with a sore throat and nasal congestion that has since resolved, followed by 2-3 day history of a dry cough and right ear pain. Patient states that she has a known foreign body in her right ear canal ( wax ear plugs material/ debris) that has been there for the past 2 years. She is uncertain if this is causing her pain or she now has an ear infection. She does have some mild discomfort in the left ear as well. She denies associated fevers or chills, she has no chest pain or shortness of breath. She states her blood sugars have been controlled. She denies any additional associated symptoms or modifying factors. She has no known sick contacts and she has not traveled. Related Data Home Medications ?Medication ?Instructions ?Recorded ?Confirmed ?Last Taken ?Type atorvastatin 20 mg tablet mg 09/15/25 Unknown History metformin 500 mg tablet,extended mg PO 09/15/25 Unkno wn History release 24 hr sitagliptin phosphate 100 mg mg 09/15/25 Unknown Hist ory tablet (Januvia) Allergies Allergy/AdvReac Type Severity Reaction Status Date / Time Penicillins Allergy Mild Rash Verified 09/15/25 09:22 Review of Systems ENT: Reports system reviewed and no additional complaints, except as documented and Reports as per HPI Respiratory: Respiratory: Reports as per HPI and Reports no additional respiratory complaints Exam Const: General: healthy appearing and no acute distress Nutritional Appearance: well nourished and obese Orientation/consciousness: patient oriented x3 Limitations: no limitations HENMT: Head: normal to inspection Face and sinus: normal facial exam and sinuses nontender Mouth: Yes Normal oral and palatal mucosa present and Yes lip normal Throat: posterior oropharynx normal and uvula midline Other: Patient has a purulent effusion to the left TM with erythema and bulging. No perforation noted. The right TM is partially obstructed by a bright orange object that is consistent with the wax ear plugs material patient has in her purse for comparison. Patient believes this has been present for at least 2 years. There is no evidence of perforation, no erythema or swelling to the ear canal, no tenderness within the ear canal with palpation or manipulation of the auricle. No mastoid tenderness bilaterally, no fluctuance noted. Eyes: Conjunctivae: conjunctivae normal Pupils: Equal, round and reactive pupils present EOM: EOMs intact bilaterally Neck: Neck: normal visual inspection, no lymphadenopathy and no meningeal signs Resp: Effort & Inspection: normal respiratory effort Auscultation: clear to auscultation bilaterally Other: Patient does have a spasmodic cough that is dry and barking in nature Cardio: Rate: regular rate Rhythm: regular rhythm Skin: General skin exam: normal color Rashes: no rashes Wounds: no wounds Neuro: General: patient oriented x3, moves all extremities, no meningeal signs, no focal motor deficits and CN's II-XI intact bilaterally Cranial nerves: Yes Nystagmus not present Speech: normal speech Gait exam (Neuro): Normal gait present Course Course Emergency Course: patient has otitis media that is visible in the left, possibly present on the right as well in addition to a likely viral URI with a spasmodic cough. Will treat with antibiotics, oral steroids and cough suppressant. Patient states she typically receives Zithromax for her ear infections and this works well. She is penicillin allergic. She had an ENT referral made by her PCP but she did not follow-up as she felt she was too anxious to make the appointment. The foreign body in her right ear canal has been present for at least 2 years and does not appear to be an acute problem. She is encouraged to follow-up with the ENT previously referred by her PCP and if that referral is no longer active, she is encouraged to follow up Dr. Garcia, her PCP to renew that referral as indicated. Patient verbalized understanding she is agreeable with discharge plan of care Level of Care: Express Care Visit ([id number]) Vital Signs Vital signs: Vital Signs Temperature 36.7 C 09/15/25 09:00 Pulse Rate 57 L 09/15/25 09:00 Respiratory Rate 20 09/15/25 09:00 Blood Pressure 133/75 09/15/25 09:00 Pulse Oximetry 99 09/15/25 09:00 Oxygen Delivery Room Air 09/15/25 09:00 Temperature 36.7 C 09/15/25 09:00 Pulse Rate 57 L 09/15/25 09:00 Respiratory Rate 20 09/15/25 09:00 Blood Pressure 133/75 09/15/25 09:00 Pulse Oximetry 99 09/15/25 09:00 Oxygen Delivery Room Air 09/15/25 09:00 MDM - URI/Sore Throat MDM Narrative Medical decision making narrative: Zithromax, prednisone and promethazine DM Differential Diagnosis Differential diagnosis: Likely upper respiratory infection, otitis media, sinusitis, viral infection, pharyngitis and other ( otitis media, ear canal foreign body) Discharge Plan Discharge Clinical Impression: Bronchitis Otitis media Qualifiers: Otitis media type: suppurative Chronicity: acute Laterality: left Recurrence: non-recurrent Spontaneous tympanic membrane rupture: without spontaneous rupture Qualified Code(s): H66.002 - Acute suppurative otitis media without spontaneous rupture of ear drum, left ear Non-penetrating foreign body in right ear canal Qualifiers: Encounter type: subsequent encounter Qualified Code(s): S00.451D - Superficial foreign body of right ear, subsequent encounter Patient Disposition: Home Condition: Stable Instructions: Antibiotic Form, Ear Infection (GEN), Acute Bronchitis (ED) Additional Instructions: PUSH FLUIDS, REST, COMPLETE ANTIBIOTICS, STEROIDS AND COUGH SUPPRESSANT DIRECTED. FOLLOW-UP WITH YOUR PRIMARY DOCTOR TO DISCUSS RENEWAL OF THE ENT REFERRAL TO REMOVE THE LIKELY FOREIGN BODY FROM YOUR RIGHT EAR CANAL THAT HAS BEEN ONGOING FOR THE PAST APPROXIMATELY 2 YEARS. YOU MAY ALSO SEE DR. GARCIA FOR FOLLOW-UP IF YOUR SYMPTOMS ARE NOT IMPROVING IN 3-5 DAYS. Patient Language: Kiswahili Prescriptions: New prednisone 20 mg tablet 40 mg PO DAILY 5 Days Qty: 10 0RF promethazine-DM 6.25-15 mg/5 mL syrup 5 ml PO Q4-6H PRN (Reason: cough) Qty: 118 0RF azithromycin [Zithromax] 250 mg tablet See Rx Instructions .ROUTE .COMPLEX Qty: 6 0RF Rx Instructions: For 250 mg dose pack: take 500 mg today (day 1), then 250 mg for 4 days (days 2-5) No Action atorvastatin 20 mg tablet metformin 500 mg tablet extended release 24 hr PO Januvia 100 mg tablet Follow-up/Referrals: Jose,Iam Fernandez M.D. [Primary Care Provider] Time of Disposition: 09:39
== END 2025-09-15 09:40 | disposition home or self-care (01) ==
PROVIDERS: Emergency Provider Nurse Practitioner Family; PCP Family Medicine
DX: J40 Bronchitis, not specified as acute or chronic (principal); H66.002 Acute suppurative otitis media without spontaneous rupture of ear drum, left ear; T16.1XXA Foreign body in right ear, initial encounter; W44.9XXA Unspecified foreign body entering into or through a natural orifice, initial encounter; E11.9 Type 2 diabetes mellitus without complications; Z79.84 Long term (current) use of oral hypoglycemic drugs; E78.5 Hyperlipidemia, unspecified
CPT/HCPCS: 99203; G0463

== ENCOUNTER 2025-10-03 10:26 | Emergency (ER) | payer MEDICARE, MEDICAID, SELFPAY ==
--- OUTSIDE RECORDS SUMMARY | 2025-10-03 10:29 | XMS_ITS | Clinical Summary ---
Author Organization [facility] Address [address] [place] [address] Care Team Providers Care Internal Wholesaler Name Role Phone Iam Garcia MD Primary Care Provider [phone] Allergies Active Allergy Reactions Criticality Noted Date [...] Active Additional Information Patient not taking.Reported on 09/24/2025 metFORMIN XR (GLUCOPHAGE XR) 500 mg 24 hr tablet TAKE 1 TABLET(500 MG) BY MOUTH DAILY 90 tablet 3 09/25/20 24 Active fluticasone propion-salmeteroL (ADVAIR DISKUS) 250-50 mcg/dose diskus inhaler Inhale 1 puff 2 (two) times a day Rinse mouth with water after use. Do not swallow. 1 each 11 09/25/20 Active Additional Information Patient not taking.Reported on 09/24/2025 fluticasone furoate-vilanteroL (Breo Ellipta) 200-25 mcg/dose diskus inhaler Inhale 1 puff daily Rinse mouth with water after use. Do not swallow. 60 each 09/25/20 Active Additional Information Patient not taking.Reported on 09/24/2025 SITagliptin phosphate (Januvia) 100 mg tabletIndications: Type [...] Active Problems Problem Noted Date Diagnosed Date Chronic diffuse otitis externa of right ear 09/06 Assessment & Plan (09/24/2025 1:34 PM QA ARCHITECT): Avoid ear cleaning techniques Avoid water to ears Vinegar and alcohol recipe discussed and Handout provided Medicare annual wellness visit, subsequent 10/24 Assessment & Plan (10/24/2024 9:08 AM QA ARCHITECT): In regard to health maintenance, Colonoscopy- Declined [...] healthier, we can set up appointment with wound nurse/manufacturing group leader. Have an active lifestyle, strive for 30 [...] 2022 Assessment & Plan (10/06/2023 8:14 AM QA ARCHITECT): Discussed colorectal cancer screening guidelines. No family [...] of right ear 10/06/2023 Assessment & Plan (09/24/2025 1:33 PM QA ARCHITECT): Avoid ear cleaning techniques Avoid water to ears Assessment & Plan (04/09/2024 8:32 AM CDT): [place]/orange foreign body versus mass obstructing view of right TM. Nontender. No drainage. Denies any issues with hearing. Updated referral to ENT Assessment & Plan (10/06/2023 8:40 AM QA ARCHITECT): Probable ear plug? Right pink object in right canal. No surrounding erythema or drainage. TM appears intact. Unable to remove in office. Referral placed to ENT. Kidney stone 10/03/2022 Assessment & Plan (10/03/2022 2:24 PM QA ARCHITECT): Evaluated in ER 08/16/22, left ureter stone. [...] Future Assessment & Plan (10/24/2024 9:07 AM QA ARCHITECT): A1C improving but not at goal yet. [...] goal. Scheduled for eye exam tomorrow at [facility]. Current medications Januiva 100 Metformin 500 once daily. Will increase metformin to 500 mg twice daily. Repeat labs in 6 months. Assessment & Plan (10/06/2023 8:33 AM QA ARCHITECT): Lab Results Component Value Date HGBA1C 7.2 [...] controlled. Assessment & Plan (10/03/2022 2:27 PM QA ARCHITECT): Lab Results Component Value Date HGBA1C 6.7 [...] 01/12/2021 Assessment & Plan (09/28/2021 8:42 AM QA ARCHITECT): Periodically checks BS. Doing well on januvia. [...] Future Assessment & Plan (10/24/2024 9:06 AM QA ARCHITECT): Lipid panel stable and well controlled with [...] today. Assessment & Plan (10/06/2023 8:18 AM QA ARCHITECT): Stable; continue atorvastatin 20 mg daily. Assessment & Plan (04/04/2023 1:47 PM CDT): Taking atorvastatin 20 mg daily as prescribed. LDL=63 Assessment & Plan (10/03/2022 2:37 PM QA ARCHITECT): Doing well on atorvastatin 20 mg daily. [...] months. Assessment & Plan (09/28/2021 8:54 AM QA ARCHITECT): Doing well on atorvastatin daily. Reviewed previous lipids, discussed diet and exercise recommendations. Assessment & Plan (12/26/2018 4:49 PM QA ARCHITECT): Diabetes is improving with treatment. Continue current treatment regimen. Diabetes will be reassessed in 3 months. Patient is losing weight, and following a diabetic diet. Her blood sugars are improving. Refused influenza vaccine 12/26/2018 Exposure to mold 12/26/2018 Assessment & Plan (12/26/2018 4:49 PM QA ARCHITECT): Patient reports exposure to mold at her [...] 12/26/2018 Assessment & Plan (10/06/2023 8:39 AM QA ARCHITECT): Preventive exam; reviewed recommended preventive screenings and vaccinations. Encourage annual flu vaccine. -Cologuard ordered -encouraged to schedule a well-woman exam -mammogram ordered today Assessment & Plan (10/03/2022 2:23 PM QA ARCHITECT): Preventive exam; reviewed recommended preventive screenings and vaccinations. Encourage annual flu vaccine. Wear sunscreen/protective clothing when outdoors. Assessment & Plan (09/28/2021 8:42 AM QA ARCHITECT): Preventive exam; reviewed recommended preventive screenings and vaccinations. Encourage annual flu vaccine. Wear sunscreen/protective clothing when outdoors. Bronchitis 10/23/2018 Assessment & Plan (10/23/2018 12:32 PM QA ARCHITECT): Take your antibiotic as directed You may [...] Ellipta. Assessment & Plan (10/24/2024 9:06 AM QA ARCHITECT): Stable and well controlled. Denies any recent flare ups. Albuterol is rarely used. Assessment & Plan (04/09/2024 8:30 AM CDT): Doing well with Advair maintenance therapy. Denies any recent exacerbation, no recent use of albuterol inhaler. Assessment & Plan (04/04/2023 1:27 PM CDT): No recent exacerbation, has not required use of rescue inhaler. Assessment & Plan (10/03/2022 2:29 PM QA ARCHITECT): Using advair seasonally. No recent exacerbations, need for albuterol or night time coughing. Assessment & Plan (09/28/2021 8:58 AM QA ARCHITECT): Encouraged use of maintenance inhaler, reminded to rinse mouth after use. Lungs CTA on exam. No ongoing respiratory symptoms following recent covid infection. Will continue to monitor. Encouraged covid-19 and annual influenza vaccination. Assessment & Plan (10/23/2018 12:36 PM QA ARCHITECT): Asthma is worsening. The patient is experiencing [...] exercise. Assessment & Plan (10/24/2024 9:05 AM QA ARCHITECT): Encouraged heart healthy diet and lifestyle. Advised 150 min/week of aerobic exercise. Assessment & Plan (08/23/2024 1:00 PM CDT): Encourage healthy diet and regular physical activity. Assessment & Plan (04/04/2023 1:46 PM CDT): Re-gained 9 lbs, will continue to monitor. Stressed need to continue to follow diet changes and increase exercise. Assessment & Plan (10/03/2022 2:40 PM QA ARCHITECT): Has lost 12 lbs this past year. Working on diet changes. Discussed healthy diet and importance of regular physical activity. Assessment & Plan (01/27/2022 5:55 PM CDT): Discussed healthy diet and importance of regular physical activity. Assessment & Plan (09/28/2021 8:58 AM QA ARCHITECT): Discussed healthy diet and importance of regular physical activity. Assessment & Plan (01/09/2019 12:05 PM QA ARCHITECT): Obesity is improving with lifestyle modifications. Discussed the patient's BMI. The BMI is above average; BMI management plan is completed. General weight loss/lifestyle modification strategies discussed (elicit support from others; identify saboteurs; non-food rewards, etc). Assessment & Plan (12/26/2018 11:21 AM QA ARCHITECT): Obesity is improving with lifestyle modifications. Discussed [...] greens, fat-free milk, cottage cheese, nuts like gvpluku-zqkqbwv-acktist, protein bars with 10-15 g of protein [...] 12/26/2018 Assessment & Plan (01/09/2019 10:18 AM QA ARCHITECT): Excessive Ear Wax Prevention Cerumen accumulation or excessive ear wax can cause symptoms like-Hearing loss ?Earache ?Ear fullness ?Itchiness ?Reflex cough ?Dizziness ?Tinnitus Normal ears use a cotton ball dipped in mineral oil, olive oil, Baby oil, or [place] oil and place in the external canal [...] agents Assessment & Plan (12/26/2018 11:17 AM QA ARCHITECT): Excessive Ear Wax Prevention Cerumen accumulation or excessive ear wax can cause symptoms like-Hearing loss ?Earache ?Ear fullness ?Itchiness ?Reflex cough ?Dizziness ?Tinnitus Normal ears use a cotton ball dipped in mineral oil, olive oil, Baby oil, or [place] oil and place in the external canal [...] Benzalkonium Chloride softening agents Other constipation 12/26/2018 Assessment & Plan (12/26/2018 4:48 PM QA ARCHITECT): Patient reports being constipated since Monday. She [...] Encounters Date Type Department Care Team Description 09/24/2025 1:15 PM QA ARCHITECT Office Visit [facility] - [address] [id number] Jo Ann Wilburn DO Foreign body of right ear, initial encounter (Primary Dx); Chronic diffuse otitis externa of right ear 09/23/2025 4:12 PM QA ARCHITECT - 09/23/2025 11:59 PM QA ARCHITECT Hospital Encounter [address] [address] Type 2 diabetes mellitus with hyperglycemia, without long-term current use of insulin (HCC) Discharge Disposition: Discharge to home or self care 09/23/2025 11:30 AM QA ARCHITECT Office Visit [facility] [address] [place] [address] Yokasta Merchant, BRIJESH Type 2 diabetes mellitus with hyperglycemia, without long-term current use of insulin (HCC) (Primary Dx); Acute foreign body of right ear canal, subsequent encounter; Obesity, morbid, BMI 40.0-49.9 (HCC) from Last 3 Months Immunizations Immunization Administration Dates Next Due Influenza, Quadrivalent, Spl it, Preservative Free, Intramuscular 07/23/2015 Influenza, Unspecified 09/23/2025(Deferr ed: Patient Refused),04/24/2025(Deferred: Patient Refused),04/24/2025(Deferred: Patient Refused),10/24/2024(Deferred: Patient Refused),08/23/2024(Deferred: Patient [...] - Hx Other Medical kidney stones; Comments: DWL 10/04/2016 - Diabetes mellitus Chronic mucoid otitis [...] drink = 0.6 oz pur e alcohol) [facility] [employer] Answer Date Recorded In the past 12 months has e [employer], gas, oil, or water [employer] threatened to shut off services in your [...] week 04/24/2025 How often do you attend chur ch or yazidi services? More than 4 times per year 04/24/2025 Do you belong to any clubs o r organizations such as presybeterian groups, unions, fraternal or athletic groups, or [...] staff should administer the PHQ-9) 0 04/24/2025 [facility] - [...] medical appointments or from getting medications? No 06/1 07/2025 In the past 12 months, has l [...] any time in the past 12 m [facility], were you homeless or living in a senior living (including now)? No 04/24/2025 AUDIT-C Answer Date [...] on file Legal Sex Female 3:26 AM QA ARCHITECT Gender Identity Not on file Sexual Orientation Not on file Obstetrics History Para Term AB IAB SAB Ectopic Multiple Livin g Live Births 2 2 2 2 Date Outcome GA Total Labor Labor/2nd/3rd Weight Sex Type Anes PTL Lakshmi A1 A5 Name Clin Term Term Last Filed Vital Signs Vital Sign Reading Time Taken Comments Blood Pressure 120/72 09/23/2025 11:09 AM QA ARCHITECT Pulse 54 09/23/2025 11:09 AM QA ARCHITECT Temperature 36.2 C (97.2 F) 09/23/2025 11:09 AM QA ARCHITECT Respiratory Rate 20 09/23/2025 11:09 AM QA ARCHITECT Oxygen Saturation 99% 09/23/2025 11:09 AM QA ARCHITECT Inhaled Oxygen Concentration - - Weight 109.3 kg (241 lb) 09/24/2025 1:14 PM QA ARCHITECT Height 157.5 cm (5' 2.01) 09/24/2025 1:14 PM CS T Body Mass Index 44.07 09/24/2025 1:14 PM QA ARCHITECT Plan of Treatment Health Maintenance Due Date Last Done Comments Cervical Cancer Screening 1966 Hepatitis C Screening 1966 DTaP/Tdap/Td Vaccine (1 - Tdap) 1977 Hepatitis B Screening 1984 Pneumococcal vaccine <65 (2 of 2 - PCV) 09/17/2015 09/17/2014 Zoster Vaccine (1 of 2) 2016 Hemoglobin A1C 10/10/2025 04/10/2025, 09/07, 03/29/2024, Additional history exists Regular Well Visit/Exam 18-64 10/24/2025 10/24/2024, 10/06/2023, 10/03/2022, Additional history exists Lipid Panel 04/10/2026 04/10/2025, 09/07, 04/09/2024, Additional history exists eGFR 04/10/2026 04/10/2025, 09/07, 03/29/2024, Additional history exists Depression Screening 04/24/2026 04/24/2025, 04/24/2025, 04/24/2025, Additional history exists Influenza Vaccine (#1) 2026 07/23/2015 Postp oned from 07/07/2025 (Patient declined, but will receive in the future) Breast Cancer Screening-Mammogram 06/30/2026 06/30/2025, 05/29/2024, 08/16/2022, Additional history exists Albumin Creatinine Ratio, Urine 09/23/2026 09/23/2025, 04/09/2024, 03/02/2023, Additional history exists Foot Exam 09/23/2026 09/23/2025, 12/11/2022, 05/20/2022, Additional history exists Colon Cancer Screening-DNA Stool 10/13/2026 10/13/2023, 07/13/2020 Dilated Eye Exam 04/19/2027 04/19/2025, , 12/11/2020, Additional history exists Colon Cancer Screening-FIT Discontinued 10/13/2023, Procedures Procedure Name Priority Date/Time Associated Diagnosis Comments ALBUMIN CREATININE RATIO, URINE Routine 09/23/2025 9:00 AM QA ARCHITECT Type 2 diabetes mellitus with hyperglycemia, without long-term current use of insulin (HCC) SCREENING MAMMOGRAM BILATERAL W LEWIS Schedule Routine, Read Routine (OP Routine) 06/30/2025 3:24 PM CDT Screening mammogram, encounter for DIABETIC EYE EXAM Routine 04/19/2025 9:4 6 [...] STOOL DNA COLOGUARD Routine 10/13/2023 9:58 AM QA ARCHITECT Encounter for colorectal cancer screening from Last 3 Months or Most Recently Relevant to Health Maintenance Results * Albumin Creatinine Ratio, Urine (09/23/2025 9:00 AM QA ARCHITECT) Albumin Ur <12.0 mg/L Comment: Interpretive Data No reference range established. Current interpretive data was last revised 2019. Creatinine Ur 98.6 mg/dL STEFAN PARDO Comment: Interpretive Data No reference range established. Current interpretive data was last revised 2019. Albumin Creatinine Ratio, Ur <12 1 - 29 mg/g STEAFN PARDO Urine 09/23/2025 9:00 AM QA ARCHITECT 09/23/2025 4:28 PM QA ARCHITECT us Yokasta Merchant NP LAB URINE ORDERABLES Final Result STEFAN PARDO [address] Department [place] [address] * Screening Mammogram Bilateral W Lewis (06/30/2025 [...] calcification, or architectural distortion in either breast. Self Screening Mammogram IMG MAMMO PROCEDURES Fi nal Result * Diabetic Eye Exam (04/19/2025 9:46 [...] was last reviewed 2021. Testing performed by: [facility], [address] [place] [address], [place]., [address] Blood 04/10/2025 1:10 PM CDT 04/10/2025 7:31 PM CDT Chika Vitale NP LAB BLOOD ORDERABLES Final Re sult Performing Organization Address [facility] Co de Phone Number STEFAN IRWIN ([place]) [address] [facility] [place] [address] * (ABNORMAL) Hemoglobin A1c (04/10/2025 1:10 PM CDT) Hgb A1C 7.6(H) 4.0 - 5.6 % Comment:Testing performed by : [facility], [address] [place] [address]., [address] Estimated Average Glucose 171 mg/dL ABIMBOLAANDRA IRWIN ([place]) Comment: The ADA recommends reporting an estimated Average Glucose (eAG) with all Hemoglobin A1c results using the equation derived from a study of 507 normal and diabetic adults. Minority populations were underrepresented and children were not included. (Diabetes Care 31:8588-3326, 2008). The eAG is not equivalent to a fasting glucose. Testing performed by: [facility], [address] [place] [address]., [address] Blood 04/10/2025 1:10 PM CDT 04/10/2025 6:58 PM CDT Chika Vitale NP LAB BLOOD ORDERABLES Final Re sult Performing Organization Address City/[facility] Co de Phone Number STEFAN IRWIN ([place]) [address] [facility] [place] [address] * (ABNORMAL) Lipid panel (04/10/2025 1:10 PM [...] last revised on 2018. Testing performed by: [address] [address] Triglycerides 170(H) <=149 mg/dL [facility]ER [facility] ([place]) [...] last revised on 2018. Testing performed by: [facility], [address] [place] [address]., [address] HDL 35(L) >=40 mg/dL [facility] ([place]) [...] last revised on 2018. Testing performed by: [facility], [address] [place] [address]., [address] LDL, calculated 69 <=129 mg/dL [facility] [...] NCEP Expert Panel. Circulation 2004;110:227 3. Jacobo M et al. JUAN ANTONIO Cardiol. 2019March 06;5(5):540-548. doi: 10.1001/jamacardio.[email or web address] Current Interpretive Data was last revised on 2024. Testing performed by: [address] [address] Non-HDL Cholesterol 98 mg/dL STEFAN IRWIN ([place]) [...] last revised on 2018. Testing performed by: [address] [address] Chol/HDL ratio 4 LU IRWIN ([place]) Comment:Testing performed by : [address] [address] Blood 04/10/2025 1:10 PM CDT 04/10/2025 6:58 PM CDT Chika Vitale NP LAB BLOOD ORDERABLES Final Re sult STEFAN IRWIN ([place]) [address] [facility] Department [place] [address] * Stool DNA - Cologuard (10/13/2023 9:58 AM QA ARCHITECT) [facility] Stool DNA - Cologuard Negative Negative [employer] (CLIA #:[id number]) Comment: NEGATIVE TEST RESULT. A negative Cologuard [...] Trivedi et al, N Engl J Med 2014;370(14):6775-8553) The normal value (reference range) for this assay is negative. COLOGUARD RE-SCREENING RECOMMENDATION: Periodic colorectal cancer screening is an important part of preventive healthcare for asymptomatic individuals at average risk for colorectal cancer. Following a negative Cologuard result, the [place] Cancer Society and U.S. Multi-Society Task Force screening guidelines recommend a Cologuard re-screening interval of 3 years. References: [place] [employer] Society Guideline for Colorectal Cancer Screening: https://www.cancer.org/cancer/dbyuj-zlpcav-xsbskf/llmysqigb-pxdssiagy-tjajlmi/ac s-rec ommendations.html.; Britton DK, Maykel CR, Rock PalomaresK, Colorectal Cancer Screening: Recommendations for Physicians and Patients from the U.S. Multi-Society Task Force on Colorectal Cancer Screening , Am J Gastroenterology 2017; 112:8721-2112. TEST DESCRIPTION: Composite algorithmic analysis of stool [...] (Efrain Gloria al, N Engl J Med 2014;370(14):3718-3218.) Cologuard may produce a false negative or false positive result (no colorectal cancer or precancerous polyp present at colonoscopy follow up). A negative Cologuard test result does not guarantee the absence of CRC or advanced adenoma (pre-cancer). The current Cologuard screening interval is every 3 years. ([place] Cancer Society and U.S. Multi-Society Task Force). Cologuard performance data in a 10,000 patient pivotal study using colonoscopy as the reference method can be accessed at the following location: www.[employer]/results. Additional description of the Cologuard test process, warnings and precautions can be found at www.SnapTelloguard.com. Stool 10/13/2023 9:58 AM QA ARCHITECT 10/14/2023 3:06 PM QA ARCHITECT Hue Funez NP LAB BODY FLUIDS AND STOOLS ORDERABLES Final Result [employer] (CLIA #:[id number]) Kayla [place] [address] from Last 3 Months or Most Recently Relevant to Health Maintenance Insurance IDPA MEDICARE MEDICARE [facility] Care Teams Internal Wholesaler Relationship Specialty Start Date End [place] [address] [facility] - General 02/03/17
--- OUTSIDE RECORDS SUMMARY | 2025-10-03 10:29 | XMS_ITS | Clinical Summary ---
Author Organization [facility] Address [address] [place] [address] Phone Care Team Providers Care Criminal Justice Teacher Name Role Phone Iam Garcia MD Primary Care Provider [phone] Allergies Active Allergy Reactions Criticality Noted Date [...] topic Insurance MEDICAID [place] MED[place]ARE Care Teams Criminal Justice Teacher Relationship Specialty Start Date End [place] [address] PCP - General Internal Medicine 09/09/21
--- OUTSIDE RECORDS SUMMARY | 2025-10-03 10:31 | XMS_ITS | Clinical Summary ---
Author Organization [facility] [employer] Address [address] [place] [address] Care Team Providers Care Loan Review Analyst Name Role Phone Unavailable Primary Care Provider Unavailabl e Source Comments [facility] [employer],non-owned Affiliates and Associated Physician Practices is amultiple site organization consisting of ambulatory clinics and hospital sitesin [place], [place], [place] and [place]. This disclosure is being madepursuant to the Care Everywhere program and may not contain all information available regarding this patient. Last updated 18.[facility] [employer] Allergies No known active allergies Medications * [...] on file Legal Sex Female 8:07 AM TOPSTITCHER ZIGZAG Gender Identity Not on file Sexual Orientation Not on file Last Filed Vital Signs Vital Sign Reading Time Taken Comments Blood Pressure 126/72 09/28/2016 8:43 AM TOPSTITCHER ZIGZAG Pulse 60 09/28/2016 8:43 AM TOPSTITCHER ZIGZAG Temperature 37.1 C (98.8 F) 09/28/2016 8:43 AM TOPSTITCHER ZIGZAG Respiratory Rate 18 09/28/2016 8:43 AM TOPSTITCHER ZIGZAG Oxygen Saturation 96% 09/28/2016 8:43 AM TOPSTITCHER ZIGZAG Inhaled Oxygen Concentration - - Weight 122.5 kg (270 lb) 09/28/2016 8:43 AM TOPSTITCHER ZIGZAG Height 154.9 cm (5' 1) 09/28/2016 8:43 AM TOPSTITCHER ZIGZAG Body Mass Index 51.02 09/28/2016 8:43 AM TOPSTITCHER ZIGZAG Plan of Treatment Health Maintenance Due Date [...] of 3 - 19+ 3-dose series) 1985 PAP SMEAR 1987 Cervical Cancer Screening 1996 PAP with HPV 1996 PNEUMOCOCCAL VACCINE 50+ (1 of 1 - PCV) 2016 ZOSTER VACCINE (1 of 2) 2016 DEPRESSION SCREENING 11/06/2024 COVID-19 VACCINE (1 - 2024-2 6 season) 2025 INFLUENZA VACCINE (#1) 2025 HIB [...] age to complete this topic [place] [address] [address] MEDICARE MEDICARE MEDICAID - OUT OF STATE
[2025-10-03 10:35] VITALS: BP 151/73; PULSE 65; RESP 18; TEMP 36.6; O2SAT 99
--- NOTE | 2025-10-03 10:54 | ED_ITS ---
HPI - General Adult General Chief complaint: Extremity Problem,Nontraumatic Stated complaint: right hand swollen and bruised Time Seen by Provider: 10/03/25 10:54 Source: patient Mode of arrival: ambulatory Limitations: no limitations History of Present Illness HPI narrative: 60 yo F presents with swelling and stiffness to R middle finger for 2 days. thinks related to arthritis. nonpainful. all systems reviewed and negative except as noted above. Related Data Home Medications ?Medication ?Instructions ?Recorded ?Confirmed ?Last Taken ?Type atorvastatin 20 mg tablet mg 09/15/25 Unknown History metformin 500 mg tablet,extended mg PO 09/15/25 Unkno wn History release 24 hr sitagliptin phosphate 100 mg mg 09/15/25 Unknown Hist ory tablet (Januvia) Allergies Allergy/AdvReac Type Severity Reaction Status Date / Time Penicillins Allergy Mild Rash Verified 10/03/25 10:32 [facility] Comments At time of signature, agree with nursing past medical, surgical, social and family history. There is no relevant family history pertinent to the presenting complaint. Exam Narrative: GENERAL: This is a well-nourished, well-developed patient, in no apparent distress. HEAD: normocephalic, atraumatic. EYES: PERRL. Sclera clear/white. Vision is grossly intact. EARS: External ears normal NOSE: External nose normal NECK: Neck supple, non-tender without lymphadenopathy, masses or thyromegaly. CARDIOVASCULAR: Regular rate and rhythm without murmurs, gallops, or rubs. RESPIRATORY: Clear to auscultation. Breath sounds equal bilaterally. No wheezes, rales, or rhonchi. SKIN: warm, Dry, intact with no suspicious lesions or rash, good texture and turgor. NEURO: awake, alert, and oriented to person, place and time. There were no obvious focal neurologic abnormalities. EXTREMITIES: Swelling to right middle finger and right right 3rd MCP. No tenderness on palpation. No erythema or warmth concerning for infection. Course Course Level of Care: Express Care Visit Vital Signs Vital signs: Vital Signs Temperature 36.6 C 10/03/25 10:35 Pulse Rate 65 10/03/25 10:35 Respiratory Rate 18 10/03/25 10:35 Blood Pressure 151/73 H 10/03/25 10:35 Pulse Oximetry 99 10/03/25 10:35 Oxygen Delivery Room Air 10/03/25 10:35 Temperature 36.6 C 10/03/25 10:35 Pulse Rate 65 10/03/25 10:35 Respiratory Rate 18 10/03/25 10:35 Blood Pressure 151/73 H 10/03/25 10:35 Pulse Oximetry 99 10/03/25 10:35 Oxygen Delivery Room Air 10/03/25 10:35 At time of signature, agree with nursing past medical, surgical, social and family history. There is no relevant family history pertinent to the presenting complaint. Medical Decision Making MDM Narrative Medical decision making narrative: offered patient x-ray for further evaluation right middle finger stiffness and she declined. Will treat with Medrol Dosepak. Recommend follow-up with primary care physician if not improving. Vital Signs Vital Signs: Vital Signs Temperature 36.6 C 10/03/25 10:35 Pulse Rate 65 10/03/25 10:35 Respiratory Rate 18 10/03/25 10:35 Blood Pressure 151/73 H 10/03/25 10:35 Pulse Oximetry 99 10/03/25 10:35 Oxygen Delivery Room Air 10/03/25 10:35 Temperature 36.6 C 10/03/25 10:35 Pulse Rate 65 10/03/25 10:35 Respiratory Rate 18 10/03/25 10:35 Blood Pressure 151/73 H 10/03/25 10:35 Pulse Oximetry 99 10/03/25 10:35 Oxygen Delivery Room Air 10/03/25 10:35 Discharge Plan Discharge Clinical Impression: Arthritis of hand, right Patient Disposition: Home Condition: Stable Instructions: Arthritis (ED) Additional Instructions: Take steroids as prescribed to treat hand swelling. Take tylenol or ibuprofen every 6 to 8 hours as needed for pain. See your doctor as needed. Patient Language: [place] Prescriptions: New methylprednisolone [Medrol (Rolando)] 4 mg tablets,dose pack See Rx Instructions PO .COMPLEX Qty: 21 0RF Rx Instructions: orally per package directions No Action atorvastatin 20 mg tablet metformin 500 mg tablet extended release 24 hr PO Januvia 100 mg tablet promethazine-DM 6.25-15 mg/5 mL syrup 5 ml PO Q4-6H PRN (Reason: cough) Qty: 118 0RF Follow-up/Referrals: Harms,Iam Fernandez M.D. [Primary Care Provider] Time of Disposition: 11:05
== END 2025-10-03 11:11 | disposition home or self-care (01) ==
PROVIDERS: Emergency Provider Nurse Practitioner Family; PCP Family Medicine
DX: M19.041 Primary osteoarthritis, right hand (principal)
CPT/HCPCS: 99213; G0463

== ENCOUNTER 2025-10-21 18:05 | Emergency (ER) | payer MEDICARE, SELFPAY ==
--- OUTSIDE RECORDS SUMMARY | 2025-10-20 13:50 | XMS_ITS | Encounter Summary ---
Author Organization [facility] Healthcare Address [address] [place] [address] Care Team Providers Care Mothercraft Nurse Name Role Phone Iam Garcia MD Primary Care Provider [phone] Encounter Details Date Type Department Care Team (Late st Contact Info) Description 10/20/2025 1:50 PM PARIMUTUEL TICKET CASHIER Lab [facility] [address] [place] [id number] Type 2 diabetes mellitus with hyperglycemia, without long-term current use of insulin (HCC); Type 2 diabetes mellitus with hyperlipidemia (HCC) Social History Tobacco Use Types Packs/Day Years Used Date Smoking Tobacco: Never Smokeless Tobacco: Never Alcohol Use Standard Drinks/Week Comments No 0 (1 standard drink = 0.6 oz pur e alcohol) [facility] Utilities Answer Date Recorded In the past 12 months has [facility] [employer], gas, oil, or water [employer] threatened to shut off services in your [...] often do you attend chur ch or zoroastrianism services? More than 4 times per year 04/24/2025 Do you belong to any clubs o r organizations such as anglican groups, unions, fraternal or athletic groups, or [...] staff should administer the PHQ-9) 0 04/24/2025 [facility] of Occupat ional Health - Occupational Stress [...] any time in the past [address] [facility], were you homeless or living in a correction (including now)? No 04/24/2025 AUDIT-C Answer Date [...] on file Legal Sex Female 3:26 AM PARIMUTUEL TICKET CASHIER Gender Identity Not on file Sexual Orientation Not on file documented as of this encounter Plan of Treatment Not on file documented as of this encounter Procedures Procedure Name Priority Date/Time Associated Diagnosis Comments EGFR Routine 10/20/2025 1:47 PM PARIMUTUEL TICKET CASHIER Type 2 diabetes mellitus with hyperglycemia, without long-term current use of insulin (HCC) DIFFERENTIAL AUTO Routine 10/20/2025 1:4 7 PM PARIMUTUEL TICKET CASHIER Type 2 diabetes mellitus with hyperglycemia, without long-term current use of insulin (HCC) CBC WITH AUTO DIFFERENTIAL Routine 10/20/2025 1:47 PM PARIMUTUEL TICKET CASHIER Type 2 diabetes mellitus with hyperglycemia, without long-term current use of insulin (HCC) HEMOGLOBIN A1C Routine 10/20/2025 1:47 PM PARIMUTUEL TICKET CASHIER Type 2 diabetes mellitus with hyperglycemia, without long-term current use of insulin (HCC) LIPID PANEL Routine 10/20/2025 1:47 PM PARIMUTUEL TICKET CASHIER Type 2 diabetes mellitus with hyperlipidemia (HCC) COMPREHENSIVE METABOLIC PANEL Routine 10/20/2025 1:47 PM PARIMUTUEL TICKET CASHIER Type 2 diabetes mellitus with hyperglycemia, without long-term current use of insulin (HCC) documented in this encounter Results * eGFR (10/20/2025 1:47 PM PARIMUTUEL TICKET CASHIER) eGFR 84 >=60 mL/min/1. 73 m2 Comment: Interpretive Data [...] was last reviewed 2021. Testing performed by: [facility], [address] [place] [address], [place]., [address] Blood 10/20/2025 1:47 PM PARIMUTUEL TICKET CASHIER 10/20/2025 6:38 PM PARIMUTUEL TICKET CASHIER us Chika Vitale NP LAB BLOOD ORDERABLES Final Re sult STEFAN IRWIN ([place]) 1 [facility] Department [place] [address] * (ABNORMAL) Differential, auto (10/20/2025 1:47 PM PARIMUTUEL TICKET CASHIER) Neutrophil abs 7.28(H) 1.50 - 6.50 K/cumm Comment:Testing performed by : [facility], [address] [place] [address]., [id number] Imm gran abs 0.04 0.00 - 0.10 K/cumm [facility] ([place]) Comment:Testing performed by : [facility], [address] [place] [address]., [id number] Lymphocyte abs 2.64 0.80 - 3.30 K/cumm [facility] ([place]) Comment:Testing performed by : [facility], [address] [place] [address]., [address] Monocyte abs 0.84(H) 0.20 - 0.80 K/cumm [facility] ([place]) Comment:Testing performed by : [facility], [address] [place] [address]., [address] Eosinophil abs 0.17 0.00 - 0.50 K/cumm [facility] ([place]) Comment:Testing performed by : [facility], [address] [place] [address]., [address] Basophil abs 0.04 0.00 - 0.10 K/cumm [facility] ([place]) Comment:Testing performed by : [facility], [address] [place] [address]., [address] Neutrophil pct 66.1 % [facility] ([place]) Comment: Interpretive Data Percent cell count reference ranges are not reported, since discordance with absolute values may lead to misinterpretation of CBC data. Current Interpretive Data was last revised on 2018. Testing performed by: [facility], [address] [place] [address]., [address] Imm gran pct 0.4 % [facility] ([place]) Comment: Interpretive Data Percent cell count reference ranges are not reported, since discordance with absolute values may lead to misinterpretation of CBC data. Current Interpretive Data was last revised on 2018. Testing performed by: [address] [address] Lymphocyte pct 24.0 % [facility] ([place]) Comment: Interpretive Data Percent cell count reference ranges are not reported, since discordance with absolute values may lead to misinterpretation of CBC data. Current Interpretive Data was last revised on 2018. Testing performed by: [facility], [address], [place]., [address] Monocyte pct 7.6 % [facility] ([place]) Comment: Interpretive Data Percent cell count reference ranges are not reported, since discordance with absolute values may lead to misinterpretation of CBC data. Current Interpretive Data was last revised on 2018. Testing performed by: [facility], [address] [place] [address]., [address] Eosinophil pct 1.5 % [facility] ([place]) Comment: Interpretive Data Percent cell count reference ranges are not reported, since discordance with absolute values may lead to misinterpretation of CBC data. Current Interpretive Data was last revised on 2018. Testing performed by: [facility], [address] [place] [address]., [address] Basophil pct 0.4 % [facility] ([place]) Comment: Interpretive Data Percent cell count reference ranges are not reported, since discordance with absolute values may lead to misinterpretation of CBC data. Current Interpretive Data was last revised on 2018. Testing performed by: [facility], [address] [place] [address]., [id number] Blood 10/20/2025 1:47 PM PARIMUTUEL TICKET CASHIER 10/20/2025 6:31 PM PARIMUTUEL TICKET CASHIER Chika Vitael NP LAB BLOOD ORDERABLES Final Re sult [facility] ([place]) 1 [facility] Department [place] [address] * (ABNORMAL) Lipid panel (10/20/2025 1:47 PM PARIMUTUEL TICKET CASHIER) Cholesterol 132 30 - 199 mg/dL Comment: Interpretive Data [...] last revised on 2018. Testing performed by: [facility], [address] [place] [address]., [address] Triglycerides 158(H) <=149 mg/dL [facility] ([place]) Comment: Interpretive Data [...] last revised on 2018. Testing performed by: [facility], [address] [place] [address]., [address] HDL 40 >=40 mg/dL [facility] ([place]) Comment: Interpretive Data [...] last revised on 2018. Testing performed by: [facility], [address] [place] [address]., [address] LDL, calculated 65 <=129 mg/dL [facility] ([place]) Comment: Interpretive Data Ages < or = 19 years Acceptable: <110 mg/dL Borderline high: 110-129 mg/dL High: >or= 130 mg/dL Ages > or = 20 years Optimal: <100 mg/dL Near optimal: 100-129 mg/dL Borderline high: 130-159 mg/dL High: >160 mg/dL Calculated using the Centeno LDL-C estimating equation. This equation was implemented [...] last revised on 2024. Testing performed by: [address] [address] Non-HDL Cholesterol 92 mg/dL ST[facility] IR[facility] ([place]) Comment: Interpretive Data [...] last revised on 2018. Testing performed by: [address] [address] Chol/HDL ratio 3 LU IRWIN ([place]) Comment:Testing performed by : [address] [address] Blood 10/20/2025 1:47 PM PARIMUTUEL TICKET CASHIER 10/20/2025 6:31 PM PARIMUTUEL TICKET CASHIER us Chika Vitale NP LAB BLOOD ORDERABLES Final Re sult STEFAN IRWIN ([place]) 1 [facility] Department [place] [address] * Comprehensive metabolic panel (10/20/2025 1:47 PM PARIMUTUEL TICKET CASHIER) Sodium 139 135 - 145 mmol/L Comment:Testing performed by : [address] [address] Potassium, pl 3.9 3.3 - 4.9 mmol/L [facility] ([place]) Comment:Testing performed by : [facility], [address] [place] [address]., [address] Chloride 103 97 - 110 mmol/L [facility] ([place]) Comment:Testing performed by : [facility], [address] [place] [address]., [address] CO2 24 22 - 32 mmol/L [facility] ([place]) Comment:Testing performed by : [facility], [address] [place] [address]., [address] Anion gap 12 2 - 15 mmol/L [facility] ([place]) Comment:Testing performed by : [facility], [address] [place] [address], [address] BUN 15 6 - 25 mg/dL [facility] ([place]) Comment:Testing performed by : [facility], [address] [place] [address], [address] Creatinine 0.81 0.60 - 1.10 mg/dL [facility] ([place]) Comment:Testing performed by : [address], [address] Glucose 107 70 - 199 mg/dL [facility] ([place]) Comment: Interpretive Data Fasting glucose >/= 126 mg/dl is diagnostic for diabetes. Fasting is defined as no caloric intake for at least 8 hours. Fasting glucose between 100 mg/dl to 125 mg/dl is diagnostic of prediabetes. In a patient with classic symptoms of hyperglycemia or hyperglycemic crisis, a random glucose >/= 200 mg/dl is diagnostic for diabetes. In the absence of unequivocal hyperglycemia, results should be confirmed by repeat testing. The classification and Diagnosis of Diabetes Diabetes Care 2021; 46: S19-S40. Current interpretive data was last revised 2022. Testing performed by: [facility], [address] [place] [address]., [address] Calcium 8.9 8.5 - 10.3 mg/dL [facility] ([place]) Comment:Testing performed by : [address] [address] Bilirubin, total 0.3 0.1 - 1.2 mg/dL [facility] ([place]) Comment:Testing performed by : [address] [address] Protein, pl 6.7 6.5 - 8.5 g/dL [facility] ([place]) Comment:Testing performed by : [address], [address] Albumin 4.0 3.5 - 5.0 g/dL [facility] ([place]) Comment:Testing performed by : [address], [address] Alk phos 68 40 - 130 Units/L [facility] ([place]) Comment:Testing performed by : [facility], [address] [place] [address], [address] ALT 17 7 - 45 Units/L [facility] ([place]) Comment:Testing performed by : [address], [address] AST 23 10 - 45 Units/L [facility] ([place]) Comment:Testing performed by : [address], [address] Blood 10/20/2025 1:47 PM PARIMUTUEL TICKET CASHIER 10/20/2025 6:31 PM PARIMUTUEL TICKET CASHIER us Chika Vitale PIPE WELDER LAB BLOOD ORDERABLES Final Re sult [facility] ([place]) 1 [facility] Department [place] [address] * (ABNORMAL) CBC with auto differential (10/20/2025 1:47 PM PARIMUTUEL TICKET CASHIER) WBC 11.01(H) 3.80 - 9.90 K/cumm Comment:Testing performed by : [facility], [address] [place] [address], [address] Hgb 12.1 11.9 - 15.5 g/dL [facility] ([place]) Comment:Testing performed by : [address], [address] Hct 38.1 35.6 - 45.5 % [facility] ([place]) Comment:Testing performed by : [address], [address] Plt 196 150 - 400 K/cumm [facility] ([place]) Comment:Testing performed by : [address] [place]., [address] MPV 12.5(H) 9.1 - 12.3 fL [facility] ([place]) Comment:Testing performed by : [address], [address] RBC 4.17 3.90 - 5.20 M/cumm [facility] ([place]) Comment:Testing performed by : [address], [address] MCV 91.4 81.3 - 96.4 fL [facility] ([place]) Comment:Testing performed by : [address], [address] MCH 29.0 27.1 - 33.3 pg [facility] ([place]) Comment:Testing performed by : [address], [address] MCHC 31.8(L) 32.3 - 35.7 g/dL [facility] ([place]) Comment:Testing performed by : [address], [address] RDW CV 12.7 11.1 - 14.9 % [facility] ([place]) Comment:Testing performed by : [address], [address] RDW SD 42.3 35.7 - 48.1 fL [facility] ([place]) Comment:Testing performed by : [address], [address] NRBC abs 0.00 0.00 - 0.01 K/cumm [facility] ([place]) Comment:Testing performed by : [address], [address] Blood 10/20/2025 1:47 PM PARIMUTUEL TICKET CASHIER 10/20/2025 6:31 PM PARIMUTUEL TICKET CASHIER us Chika Vitale NP LAB BLOOD ORDERABLES Final Re sult [facility] ([place]) 1 [facility] Department [place] [address] * (ABNORMAL) Hemoglobin A1c (10/20/2025 1:47 PM PARIMUTUEL TICKET CASHIER) Hgb A1C 7.9(H) 4.0 - 5.6 % Comment:Testing performed by : [facility], [address] [place] [address]., [address] Estimated Average Glucose 180 mg/dL [facility] ([place]) Comment: The ADA recommends reporting an estimated Average Glucose (eAG) with all Hemoglobin A1c results using the equation derived from a study of 507 normal and diabetic adults. Minority populations were underrepresented and children were not included. (Diabetes Care 31:1669-6743, 2008). The eAG is not equivalent to a fasting glucose. Testing performed by: [facility], [address] [place] [address]., [address] Blood 10/20/2025 1:47 PM PARIMUTUEL TICKET CASHIER 10/20/2025 6:31 PM PARIMUTUEL TICKET CASHIER us Chika Vitale PIPE WELDER LAB BLOOD ORDERABLES Final Re sult STEFAN IR[facility] ([place]) 1 [facility] Department [place] [address] documented in this encounter Visit Diagnoses Diagnosis Type 2 diabetes mellitus with hyperglycemia, without long-term current use of insulin (HCC) Type 2 diabetes mellitus with hyperlipidemia (HCC) documented in this encounter Care Teams Mothercraft Nurse Relationship Specialty Start Date End Date Iam Garcia MD [address] [place] [address] PCP - General 02/03/17 documented as of this encounter
[2025-10-21 18:19] VITALS: BP 168/88; PULSE 60; RESP 20; TEMP 36.2; O2SAT 98
--- OUTSIDE RECORDS SUMMARY | 2025-10-21 18:27 | XMS_ITS | Clinical Summary ---
Author Organization [facility] Address [address] [place] [address] Care Team Providers Care Actuarial Mathematician Name Role Phone Unavailable Primary Care Provider Unavailabl e Source Comments [facility],non-owned Affiliates and Associated Physician Practices is amultiple site organization consisting of ambulatory clinics and hospital sitesin [place], [place], [place] and [place]. This disclosure is being madepursuant to the Care Everywhere program and may not contain all information available regarding this patient. Last updated 18.[facility] Allergies No known active allergies Medications * [...] on file Legal Sex Female 8:07 AM NUCLEAR CONTROL ROOM OPERATOR Gender Identity Not on file Sexual Orientation Not on file Last Filed Vital Signs Vital Sign Reading Time Taken Comments Blood Pressure 126/72 09/28/2016 8:43 AM NUCLEAR CONTROL ROOM OPERATOR Pulse 60 09/28/2016 8:43 AM NUCLEAR CONTROL ROOM OPERATOR Temperature 37.1 C (98.8 F) 09/28/2016 8:43 AM NUCLEAR CONTROL ROOM OPERATOR Respiratory Rate 18 09/28/2016 8:43 AM NUCLEAR CONTROL ROOM OPERATOR Oxygen Saturation 96% 09/28/2016 8:43 AM NUCLEAR CONTROL ROOM OPERATOR Inhaled Oxygen Concentration - - Weight 122.5 kg (270 lb) 09/28/2016 8:43 AM NUCLEAR CONTROL ROOM OPERATOR Height 154.9 cm (5' 1) 09/28/2016 8:43 AM NUCLEAR CONTROL ROOM OPERATOR Body Mass Index 51.02 09/28/2016 8:43 AM NUCLEAR CONTROL ROOM OPERATOR Plan of Treatment Health Maintenance Due Date [...] age to complete this topic Insurance [place] [address] MEDICARE MEDICARE MEDICAID - OUT OF STATE
--- OUTSIDE RECORDS SUMMARY | 2025-10-21 18:27 | XMS_ITS | Clinical Summary ---
Author Organization [facility] Address [address] [place] [address] Care Team Providers Care Barrel Cleaner Name Role Phone Iam Garcia MD Primary Care Provider [phone] Allergies Active Allergy Reactions Criticality Noted Date [...] after use. Do not swallow. 1 each 09/25/20 Active Additional Information Patient not [...] 30 tablet 11 05/01/20 25 026 Active diclofenac sodium (VOLTAREN) 1 % gelIndications:Art hritis of right knee APPLY 4 GRAMS TOPICALLY TO THE AFFECTED AREA FOUR TIMES DAILY 200 g 07/01/20 25 Active simvastatin (ZOCOR) 20 mg tabletIndications: Type 2 diabetes mellitus with hyperlipidemia (HCC) Take 1 tablet (20 mg total) by mouth nightly 90 tablet 4 10/07/20 25 026 Active atorvastatin (LIPITOR) 20 mg tabletIndications: Type 2 diabetes mellitus with hyperlipidemia (HCC) TAKE 1 TABLET(20 MG) BY MOUTH DAILY 100 tablet 1 06/07/20 25 025 Discontin ued(Alter vinicio therapy) Active Problems Problem Noted Date Diagnosed Date Chronic diffuse otitis externa of right ear 09/06 Assessment & Plan (09/24/2025 1:34 PM MILLING/POLISHING OPERATOR): Avoid ear cleaning techniques Avoid water to ears Vinegar and alcohol recipe discussed and Handout provided Medicare annual wellness visit, subsequent 10/24 Assessment & Plan (10/24/2024 9:08 AM MILLING/POLISHING OPERATOR): In regard to health maintenance, Colonoscopy- Declined [...] healthier, we can set up appointment with lawn service supervisor/infant teacher. Have an active lifestyle, strive for 30 [...] 2022 Assessment & Plan (10/06/2023 8:14 AM MILLING/POLISHING OPERATOR): Discussed colorectal cancer screening guidelines. No family [...] 10/06/2023 Assessment & Plan (09/24/2025 1:33 PM MILLING/POLISHING OPERATOR): Avoid ear cleaning techniques Avoid water to ears Assessment & Plan (04/09/2024 8:32 AM CDT): [place]/orange foreign body versus mass obstructing view of right TM. Nontender. No drainage. Denies any issues with hearing. Updated referral to ENT Assessment & Plan (10/06/2023 8:40 AM MILLING/POLISHING OPERATOR): Probable ear plug? Right pink object in right canal. No surrounding erythema or drainage. TM appears intact. Unable to remove in office. Referral placed to ENT. Kidney stone 10/03/2022 Assessment & Plan (10/03/2022 2:24 PM MILLING/POLISHING OPERATOR): Evaluated in ER 08/16/22, left ureter stone. [...] Future Assessment & Plan (10/24/2024 9:07 AM MILLING/POLISHING OPERATOR): A1C improving but not at goal yet. [...] goal. Scheduled for eye exam tomorrow at [facility]. Current medications Januiva 100 Metformin 500 once daily. Will increase metformin to 500 mg twice daily. Repeat labs in 6 months. Assessment & Plan (10/06/2023 8:33 AM MILLING/POLISHING OPERATOR): Lab Results Component Value Date HGBA1C 7.2 [...] controlled. Assessment & Plan (10/03/2022 2:27 PM MILLING/POLISHING OPERATOR): Lab Results Component Value Date HGBA1C 6.7 [...] 01/12/2021 Assessment & Plan (09/28/2021 8:42 AM MILLING/POLISHING OPERATOR): Periodically checks BS. Doing well on januvia. [...] Future Assessment & Plan (10/24/2024 9:06 AM MILLING/POLISHING OPERATOR): Lipid panel stable and well controlled with [...] today. Assessment & Plan (10/06/2023 8:18 AM MILLING/POLISHING OPERATOR): Stable; continue atorvastatin 20 mg daily. Assessment & Plan (04/04/2023 1:47 PM CDT): Taking atorvastatin 20 mg daily as prescribed. LDL=63 Assessment & Plan (10/03/2022 2:37 PM MILLING/POLISHING OPERATOR): Doing well on atorvastatin 20 mg daily. [...] months. Assessment & Plan (09/28/2021 8:54 AM MILLING/POLISHING OPERATOR): Doing well on atorvastatin daily. Reviewed previous lipids, discussed diet and exercise recommendations. Assessment & Plan (12/26/2018 4:49 PM MILLING/POLISHING OPERATOR): Diabetes is improving with treatment. Continue current treatment regimen. Diabetes will be reassessed in 3 months. Patient is losing weight, and following a diabetic diet. Her blood sugars are improving. Refused influenza vaccine 12/26/2018 Exposure to mold 12/26/2018 Assessment & Plan (12/26/2018 4:49 PM MILLING/POLISHING OPERATOR): Patient reports exposure to mold at her [...] [facility] Assessment & Plan (10/06/2023 8:39 AM MILLING/POLISHING OPERATOR): Preventive exam; reviewed recommended preventive screenings and vaccinations. Encourage annual flu vaccine. -Cologuard ordered -encouraged to schedule a well-woman exam -mammogram ordered today Assessment & Plan (10/03/2022 2:23 PM MILLING/POLISHING OPERATOR): Preventive exam; reviewed recommended preventive screenings and vaccinations. Encourage annual flu vaccine. Wear sunscreen/protective clothing when outdoors. Assessment & Plan (09/28/2021 8:42 AM MILLING/POLISHING OPERATOR): Preventive exam; reviewed recommended preventive screenings and vaccinations. Encourage annual flu vaccine. Wear sunscreen/protective clothing when outdoors. Bronchitis 10/23/2018 Assessment & Plan (10/23/2018 12:32 PM MILLING/POLISHING OPERATOR): Take your antibiotic as directed You may [...] Ellipta. Assessment & Plan (10/24/2024 9:06 AM MILLING/POLISHING OPERATOR): Stable and well controlled. Denies any recent flare ups. Albuterol is rarely used. Assessment & Plan (04/09/2024 8:30 AM CDT): Doing well with Advair maintenance therapy. Denies any recent exacerbation, no recent use of albuterol inhaler. Assessment & Plan (04/04/2023 1:27 PM CDT): No recent exacerbation, has not required use of rescue inhaler. Assessment & Plan (10/03/2022 2:29 PM MILLING/POLISHING OPERATOR): Using advair seasonally. No recent exacerbations, need for albuterol or night time coughing. Assessment & Plan (09/28/2021 8:58 AM MILLING/POLISHING OPERATOR): Encouraged use of maintenance inhaler, reminded to rinse mouth after use. Lungs CTA on exam. No ongoing respiratory symptoms following recent covid infection. Will continue to monitor. Encouraged covid-19 and annual influenza vaccination. Assessment & Plan (10/23/2018 12:36 PM MILLING/POLISHING OPERATOR): Asthma is worsening. The patient is experiencing [...] exercise. Assessment & Plan (10/24/2024 9:05 AM MILLING/POLISHING OPERATOR): Encouraged heart healthy diet and lifestyle. Advised 150 min/week of aerobic exercise. Assessment & Plan (08/23/2024 1:00 PM CDT): Encourage healthy diet and regular physical activity. Assessment & Plan (04/04/2023 1:46 PM CDT): Re-gained 9 lbs, will continue to monitor. Stressed need to continue to follow diet changes and increase exercise. Assessment & Plan (10/03/2022 2:40 PM MILLING/POLISHING OPERATOR): Has lost 12 lbs this past year. Working on diet changes. Discussed healthy diet and importance of regular physical activity. Assessment & Plan (01/27/2022 5:55 PM CDT): Discussed healthy diet and importance of regular physical activity. Assessment & Plan (09/28/2021 8:58 AM MILLING/POLISHING OPERATOR): Discussed healthy diet and importance of regular physical activity. Assessment & Plan (01/09/2019 12:05 PM MILLING/POLISHING OPERATOR): Obesity is improving with lifestyle modifications. Discussed the patient's BMI. The BMI is above average; BMI management plan is completed. General weight loss/lifestyle modification strategies discussed (elicit support from others; identify saboteurs; non-food rewards, etc). Assessment & Plan (12/26/2018 11:21 AM MILLING/POLISHING OPERATOR): Obesity is improving with lifestyle modifications. Discussed [...] greens, fat-free milk, cottage cheese, nuts like [id number], protein bars with 10-15 g of protein [...] 12/26/2018 Assessment & Plan (01/09/2019 10:18 AM MILLING/POLISHING OPERATOR): Excessive Ear Wax Prevention Cerumen accumulation or excessive ear wax can cause symptoms like-Hearing loss ?Earache ?Ear fullness ?Itchiness ?Reflex cough ?Dizziness ?Tinnitus Normal ears use a cotton ball dipped in mineral oil, olive oil, Baby oil, or [place] oil and place in the external canal [...] agents Assessment & Plan (12/26/2018 11:17 AM MILLING/POLISHING OPERATOR): Excessive Ear Wax Prevention Cerumen accumulation or excessive ear wax can cause symptoms like-Hearing loss ?Earache ?Ear fullness ?Itchiness ?Reflex cough ?Dizziness ?Tinnitus Normal ears use a cotton ball dipped in mineral oil, olive oil, Baby oil, or [place] oil and place in the external canal [...] 12/26/2018 Assessment & Plan (12/26/2018 4:48 PM MILLING/POLISHING OPERATOR): Patient reports being constipated since Monday. She [...] Encounters Date Type Department Care Team Description 10/20/2025 1:50 PM MILLING/POLISHING OPERATOR Lab [facility] [address] [place] [address] Type 2 diabetes mellitus with hyperglycemia, without long-term current use of insulin (HCC); Type 2 diabetes mellitus with hyperlipidemia (HCC) 10/07/2025 Telephone [facility] [address] [place] [address] Chika Vitale NP Request For Order(s) 09/24/2025 1:15 PM MILLING/POLISHING OPERATOR Office Visit [facility] - [address] [place] [phone] Jo Ann Wilburn DO Foreign body of right ear, initial encounter (Primary Dx); Chronic diffuse otitis externa of right ear 09/23/2025 4:12 PM MILLING/POLISHING OPERATOR - 09/23/2025 11:59 PM MILLING/POLISHING OPERATOR Hospital Encounter [address] [address] Type 2 diabetes mellitus with hyperglycemia, without long-term current use of insulin (HCC) Discharge Disposition: Discharge to home or self care 09/23/2025 11:30 AM MILLING/POLISHING OPERATOR [facility] Visit [facility] [address] [phone] Yokasta Merchant NP Type 2 diabetes mellitus with hyperglycemia, without [...] drink = 0.6 oz pur e alcohol) [facility] Utilities Answer Date Recorded In the past 12 months has [email or web address], [employer] or [employer] threatened to shut off services in your [...] 04/24/2025 How often do you attend chur or restoration services? More than 4 times per year [...] staff should administer the PHQ-9) 0 04/24/2025 [facility] Occupat ional Health - Occupational Stress [...] any time in the past 12 m [facility], were you homeless or living in a m[facility]p (including now)? No 04/24/2025 AUDIT-C Answer Date [...] on file Legal Sex Female 3:26 AM MILLING/POLISHING OPERATOR Gender Identity Not on file Sexual Orientation Not on file Obstetrics History Para Term AB IAB SAB Ectopic Multiple Livin g Live Births 2 2 2 2 Date Outcome GA Total Labor Labor/2nd/3rd Weight Sex Type Anes PTL Lakshmi A1 A5 Name Clin Term Term Last Filed Vital Signs Vital Sign Reading Time Taken Comments Blood Pressure 120/72 09/23/2025 11:09 AM MILLING/POLISHING OPERATOR Pulse 54 09/23/2025 11:09 AM MILLING/POLISHING OPERATOR Temperature 36.2 C (97.2 F) 09/23/2025 11:09 AM MILLING/POLISHING OPERATOR Respiratory Rate 20 09/23/2025 11:09 AM MILLING/POLISHING OPERATOR Oxygen Saturation 99% 09/23/2025 11:09 AM MILLING/POLISHING OPERATOR Inhaled Oxygen Concentration - - Weight 109.3 kg (241 lb) 09/24/2025 1:14 PM MILLING/POLISHING OPERATOR Height 157.5 cm (5' 2.01) 09/24/2025 1:14 PM CS T Body Mass Index 44.07 09/24/2025 1:14 PM MILLING/POLISHING OPERATOR Plan of Treatment Health Maintenance Due Date Last Done Comments Cervical Cancer Screening 1966 Hepatitis C Screening 1966 DTaP/Tdap/Td Vaccine (1 - Tdap) 1977 Hepatitis B Screening 1984 Pneumococcal vaccine <65 (2 of 2 - PCV) 09/17/2015 09/17/2014 Zoster Vaccine (1 of 2) 2016 Regular Well Visit/Exam 18-64 10/24/2025 10/24/2024, 10/06/2023, 10/03/2022, Additional history exists Hemoglobin A1C 04/20/2026 10/20/2025, 03/2025, 09/25/2024, Additional history exists Depression Screening 04/24/2026 04/24/2025, 04/24/2025, 04/24/2025, Additional history exists Influenza Vaccine (#1) 2026 07/23/2015 Postp oned from 07/07/2025 (Patient declined, but will receive in the future) Breast Cancer Screening-Mammogram 06/30/2026 06/30/2025, 05/29/2024, 08/16/2022, Additional history exists Albumin Creatinine Ratio, Urine 09/23/2026 09/23/2025, 04/09/2024, 03/02/2023, Additional history exists Foot Exam 09/23/2026 09/23/2025, 1211/2022, 05/20/2022, Additional history exists Colon Cancer Screening-DNA Stool 10/13/2026 10/13/2023, 07/13/2020 Lipid Panel 10/20/2026 10/20/2025, 06/0 03/2025, 09/25/2024, Additional history exists eGFR 10/20/2026 10/20/2025, 06/0 03/2025, 09/25/2024, Additional history exists Dilated Eye Exam 04/19/2027 04/19/2025, , 12/11/2020, Additional history exists Colon Cancer Screening-FIT Discontinued 10/13/2023, Procedures Procedure Name Priority Date/Time Associated Diagnosis Comments EGFR Routine 10/20/2025 1:47 PM MILLING/POLISHING OPERATOR Type 2 diabetes mellitus with hyperglycemia, without long-term current use of insulin (HCC) DIFFERENTIAL AUTO Routine 10/20/2025 1:4 7 PM MILLING/POLISHING OPERATOR Type 2 diabetes mellitus with hyperglycemia, without long-term current use of insulin (HCC) LIPID PANEL Routine 10/20/2025 1:47 PM MILLING/POLISHING OPERATOR Type 2 diabetes mellitus with hyperlipidemia (HCC) COMPREHENSIVE METABOLIC PANEL Routine 10/20/2025 1:47 PM MILLING/POLISHING OPERATOR Type 2 diabetes mellitus with hyperglycemia, without long-term current use of insulin (HCC) CBC WITH AUTO DIFFERENTIAL Routine 10/20/2025 1:47 PM MILLING/POLISHING OPERATOR Type 2 diabetes mellitus with hyperglycemia, without long-term current use of insulin (HCC) HEMOGLOBIN A1C Routine 10/20/2025 1:47 PM MILLING/POLISHING OPERATOR Type 2 diabetes mellitus with hyperglycemia, without long-term current use of insulin (HCC) ALBUMIN CREATININE RATIO, URINE Routine 09/23/2025 9:00 AM MILLING/POLISHING OPERATOR Type 2 diabetes mellitus with hyperglycemia, without long-term current use of insulin (HCC) SCREENING MAMMOGRAM BILATERAL W LEWIS Schedule Routine, Read Routine (OP Routine) 06/30/2025 3:24 PM CDT Screening mammogram, encounter for DIABETIC EYE EXAM Routine 04/19/2025 9:4 6 AM CDT STOOL DNA COLOGUARD Routine 10/13/2023 9:58 AM MILLING/POLISHING OPERATOR Encounter for colorectal cancer screening from Last 3 Months or Most Recently Relevant to Health Maintenance Results * eGFR (10/20/2025 1:47 PM MILLING/POLISHING OPERATOR) eGFR 84 >=60 mL/min/1. 73 m2 Comment: [...] 2021. Testing performed by: [facility], [address] [place] [address]., [id number] Blood 10/20/2025 1:47 PM MILLING/POLISHING OPERATOR 10/20/2025 6:38 PM MILLING/POLISHING OPERATOR us Chika Vitale NP LAB BLOOD ORDERABLES Final Re sult ABIMBOLATFI [facility] ([place] [facility] Department [place] [address] * (ABNORMAL) Differential, auto (10/20/2025 1:47 PM MILLING/POLISHING OPERATOR) Neutrophil abs 7.28(H) 1.50 - 6.50 K/cumm Comment:Testing performed by : [facility], [address] [place] [address]., [address] Imm gran abs 0.04 0.00 - 0.10 K/cumm [facility] ([place]) Comment:Testing performed by : [facility], [address] [place] [address]., [address] Lymphocyte abs 2.64 0.80 - 3.30 K/cumm [facility] ([place]) Comment:Testing performed by : [facility], [address] [place] [address]., [address] Monocyte abs 0.84(H) 0.20 - 0.80 K/cumm [facility] ([place]) Comment:Testing performed by : [facility], [address] [place] [address]., [address] Eosinophil abs 0.17 0.00 - 0.50 K/cumm [facility] ([place]) Comment:Testing performed by : [facility], [address] [place] [address]., [address] Basophil abs 0.04 0.00 - 0.10 K/cumm [facility] ([place]) Comment:Testing performed by : [address] [address] Neutrophil pct 66.1 % [facility] ([place]) Comment: Interpretive Data Percent cell count reference ranges are not reported, since discordance with absolute values may lead to misinterpretation of CBC data. Current Interpretive Data was last revised on 2018. Testing performed by: [facility], [address] [place] [address]., [address] Imm gran pct 0.4 % [facility] ([place]) Comment: Interpretive Data Percent cell count reference ranges are not reported, since discordance with absolute values may lead to misinterpretation of CBC data. Current Interpretive Data was last revised on 2018. Testing performed by: [facility], [address] [place] [address]., [address] Lymphocyte pct 24.0 % [facility] ([place]) Comment: Interpretive Data Percent cell count reference ranges are not reported, since discordance with absolute values may lead to misinterpretation of CBC data. Current Interpretive Data was last revised on 2018. Testing performed by: [address] [address] Monocyte pct 7.6 % [facility] ([place]) Comment: Interpretive Data Percent cell count reference ranges are not reported, since discordance with absolute values may lead to misinterpretation of CBC data. Current Interpretive Data was last revised on 2018. Testing performed by: [facility], [address] [place] [address]., [address] Eosinophil pct 1.5 % CERJOSE MARIA [facility] ([place]) Comment: Interpretive Data Percent cell count reference ranges are not reported, since discordance with absolute values may lead to misinterpretation of CBC data. Current Interpretive Data was last revised on 2018. Testing performed by: [address], [address] Basophil pct 0.4 % [facility] ([place]) Comment: Interpretive Data Percent cell count reference ranges are not reported, since discordance with absolute values may lead to misinterpretation of CBC data. Current Interpretive Data was last revised on 2018. Testing performed by: [address], [address] Blood 10/20/2025 1:47 PM MILLING/POLISHING OPERATOR 10/20/2025 6:31 PM MILLING/POLISHING OPERATOR us Chika Vitale NP LAB BLOOD ORDERABLES Final Re sult STEFAN [facility] ([place]) [facility] Department [place] [address] * (ABNORMAL) CBC with auto differential (10/20/2025 1:47 PM MILLING/POLISHING OPERATOR) WBC 11.01(H) 3.80 - 9.90 K/cumm Comment:Testing performed by : [address] [address] Hgb 12.1 11.9 - 15.5 g/dL STEFAN [facility] ([place]) Comment:Testing performed by : [address], [address] Hct 38.1 35.6 - 45.5 % STEFAN [facility] ([place]) Comment:Testing performed by : [address], [address] Plt 196 150 - 400 K/cumm STEFAN [facility] ([place]) Comment:Testing performed by : [address], [address] MPV 12.5(H) 9.1 - 12.3 fL [facility] ([place]) Comment:Testing performed by : [address], [address] RBC 4.17 3.90 - 5.20 M/cumm [facility] ([place]) Comment:Testing performed by : [address], [address] MCV 91.4 81.3 - 96.4 fL [facility] ([place]) Comment:Testing performed by : [address], [address] MCH 29.0 27.1 - 33.3 pg [facility] ([place]) Comment:Testing performed by : [address], [address] MCHC 31.8(L) 32.3 - 35.7 g/dL [facility] ([place]) Comment:Testing performed by : [address], [address] RDW CV 12.7 11.1 - 14.9 % [facility] ([place]) Comment:Testing performed by : [address], [address] RDW SD 42.3 35.7 - 48.1 fL [facility] ([place]) Comment:Testing performed by : [address], [address] NRBC abs 0.00 0.00 - 0.01 K/cumm [facility] ([place]) Comment:Testing performed by : [address], [address] Blood 10/20/2025 1:47 PM MILLING/POLISHING OPERATOR 10/20/2025 6:31 PM MILLING/POLISHING OPERATOR us Chika Vitale NP LAB BLOOD ORDERABLES Final Re sult [facility] ([place]) [facility] Department [place] [address] * (ABNORMAL) Hemoglobin A1c (10/20/2025 1:47 PM MILLING/POLISHING OPERATOR) Hgb A1C 7.9(H) 4.0 - 5.6 % Comment:Testing performed by : [address] [address] Estimated Average Glucose 180 mg/dL STEFAN IRWIN ([place]) Comment: The ADA recommends reporting an estimated Average Glucose (eAG) with all Hemoglobin A1c results using the equation derived from a study of 507 normal and diabetic adults. Minority populations were underrepresented and children were not included. (Diabetes Care 31:7205-6309, 2008). The eAG is not equivalent to a fasting glucose. Testing performed by: [facility], [address] [place] [address]., [address] Blood 10/20/2025 1:47 PM MILLING/POLISHING OPERATOR 10/20/2025 6:31 PM MILLING/POLISHING OPERATOR Chika Vitale RN CASE MANAGEMENT LAB BLOOD ORDERABLES Final Re sult STEFAN IRWIN ([place]) 1 [facility] Department [place] [address] * (ABNORMAL) Lipid panel (10/20/2025 1:47 PM MILLING/POLISHING OPERATOR) Pathologist [facility] Cholesterol 132 30 - 199 mg/dL Comment: [...] 2018. Testing performed by: [facility], [address] [place] [address], [place]., [address] Triglycerides 158(H) <=149 mg/dL STEFAN IRWIN ([place]) [...] 2018. Testing performed by: [facility], [address] [place] [address]., [address] HDL 40 >=40 mg/dL STEFAN IRWIN ([place]) [...] 2018. Testing performed by: [facility], [address] [place] [address]., [address] LDL, calculated 65 <=129 mg/dL TSEFAN IR[facility] ([place]) Comment: Interpretive Data Ages < [...] last revised on 2024. Testing performed by: [address] [address] Non-HDL Cholesterol 92 mg/dL STEFAN IRWIN ([place]) [...] last revised on 2018. Testing performed by: [address] [address] Chol/HDL ratio 3 ABIMBOLANE Tristian IRWIN ([place]) Comment:Testing performed by : [address] [address] Blood 10/20/2025 1:47 PM MILLING/POLISHING OPERATOR 10/20/2025 6:31 PM MILLING/POLISHING OPERATOR Chika Vitale RN CASE MANAGEMENT LAB BLOOD ORDERABLES Final Re sult STEFAN IR[facility] ([place]) 1 [facility] Department [place] [address] * Comprehensive metabolic panel (10/20/2025 1:47 PM MILLING/POLISHING OPERATOR) Sodium 139 135 - 145 mmol/L Comment:Testing performed by : [address] [address] Potassium, pl 3.9 3.3 - 4.9 mmol/L STEFAN IR[facility] ([place]) Comment:Testing performed by : [address] [address] Chloride 103 97 - 110 mmol/L STEFAN IRWIN ([place]) Comment:Testing performed by : [address] [address] CO2 24 22 - 32 mmol/L [facility] ([place]) Comment:Testing performed by : [facility], [address] [place] [address]., [address] Anion gap 12 2 - 15 mmol/L [facility] ([place]) Comment:Testing performed by : [facility], [address] [place] [address]., [address] BUN 15 6 - 25 mg/dL [facility] ([place]) Comment:Testing performed by : [address] [address] Creatinine 0.81 0.60 - 1.10 mg/dL [facility] ([place]) Comment:Testing performed by : [facility], [address] [place] [address], [address] Glucose 107 70 - 199 mg/dL CERNER [...] classification and Diagnosis of Diabetes Diabetes Care 202; 46: S19-S40. Current interpretive data was last revised 2022. Testing performed by: [address] [address] Calcium 8.9 8.5 - 10.3 mg/dL [facility] ([place]) Comment:Testing performed by : [address] [address] Bilirubin, total 0.3 0.1 - 1.2 mg/dL [facility] ([place]) Comment:Testing performed by : [address] [address] Protein, pl 6.7 6.5 - 8.5 g/dL [facility] ([place]) Comment:Testing performed by : [address] [address] Albumin 4.0 3.5 - 5.0 g/dL [facility] ([place]) Comment:Testing performed by : [address] [address] Alk phos 68 40 - 130 Units/L [facility] ([place]) Comment:Testing performed by : [facility], [address] [place] [address]., [address] ALT 17 7 - 45 Units/L [facility] ([place]) Comment:Testing performed by : [facility], [address] [place] [address]., [address] AST 23 10 - 45 Units/L [facility] ([place]) Comment:Testing performed by : [facility], [address] [place] [address]., [address] Blood 10/20/2025 1:47 PM MILLING/POLISHING OPERATOR 10/20/2025 6:31 PM MILLING/POLISHING OPERATOR us Chika Vitale RN CASE MANAGEMENT LAB BLOOD ORDERABLES Final Re sult ST[facility]AN [facility] ([place]) 1 [facility] Department [place] [address] * Albumin Creatinine Ratio, Urine (09/23/2025 9:00 AM MILLING/POLISHING OPERATOR) Albumin Ur <12.0 mg/L Comment: Interpretive Data No reference range established. Current interpretive data was last revised 2019. Creatinine Ur 98.6 mg/dL [facility] [facility] Comment: Interpretive Data No reference range established. Current interpretive data was last revised 2019. Albumin Creatinine Ratio, Ur <12 1 - 29 mg/g STEFAN Urine 09/23/2025 9:00 AM MILLING/POLISHING OPERATOR 09/23/2025 4:28 PM MILLING/POLISHING OPERATOR us Yokasta Merchant RN CASE MANAGEMENT LAB URINE ORDERABLES Final Result [address] Department [place] [address] * Screening Mammogram Bilateral W Lewis (06/30/2025 [...] Historical Provider HEALTH MAINTENANCE Final Result * Stool DNA - Cologuard (10/13/2023 9:58 AM MILLING/POLISHING OPERATOR) Stool DNA - Cologuard Negative Negative [employer] (CLIA #:[id number]) Comment: NEGATIVE TEST RESULT. A negative Cologuard [...] (Efrain Gloria al, N Engl J Med 2014;370(14):8739-4668) The normal value (reference range) for this assay is negative. COLOGUARD RE-SCREENING RECOMMENDATION: Periodic colorectal cancer screening is an important part of preventive healthcare for asymptomatic individuals at average risk for colorectal cancer. Following a negative Cologuard result, the [place] Cancer Society and U.S. Multi-Society Task Force screening guidelines recommend a Cologuard re-screening interval of 3 years. References: [place] [employer] Society Guideline for Colorectal Cancer Screening: https://www.cancer.org/cancer/lluff-vuhmwe-kdzbky/yezqybioc-kqrzreugc-nmvhxdy/ac s-rec ommendations.html.; Britton DK, Maykel LUBIN, Rock ARCINIEGA, Colorectal Cancer Screening: Recommendations for Physicians and Patients from the U.S. Multi-Society Task Force on Colorectal Cancer Screening , Am J Gastroenterology 2017; 112:5081-3020. TEST DESCRIPTION: Composite algorithmic analysis of stool [...] Trivedi et al, N Engl J Med 2014;370(14):6296-2582.) Cologuard may produce a false negative or false positive result (no colorectal cancer or precancerous polyp present at colonoscopy follow up). A negative Cologuard test result does not guarantee the absence of CRC or advanced adenoma (pre-cancer). The current Cologuard screening interval is every 3 years. ([place] Cancer Society and U.S. Multi-Society Task Force). Cologuard performance data in a 10,000 patient pivotal study using colonoscopy as the reference method can be accessed at the following location: www.Done In :60 Seconds/results. Additional description of the Cologuard test process, warnings and precautions can be found at www.cologuard.com. 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 [address] from Last 3 Months or Most Recently Relevant to Health Maintenance Insurance [facility] MEDICARE MEDICARE [facility] Address: [facility] [address] [place] [address] IDPA Care Teams Barrel Cleaner Relationship Specialty Start Date End Date Iam Garcia MD [address] [place] [address] PCP - General 02/03/17
--- OUTSIDE RECORDS SUMMARY | 2025-10-21 18:27 | XMS_ITS | Clinical Summary ---
Author Organization [facility] Address [address] [place] [address] Phone Care Team Providers Care Dirt Bike Racer Name Role Phone Iam Garcia MD Primary Care Provider [phone] Allergies Active Allergy Reactions Criticality Noted Date [...] Immunization (#1) 2025 07/23/2015 SARS-COV-2 Immunization ( - season) 2025 Pneumococcal Immunization Combined Discontinued 09/17/2014 Human Papillomavirus (HPV) Immunization (No Doses Required) Completed Meningococcal Immunization (ACWY) Aged Out No longer eligible based on patient's age to complete this topic Rotavirus Immunization Aged Out No lo nger eligible based on patient's age to complete this topic Insurance MEDICAID [place] MED[place]ARE Care Teams Dirt Bike Racer Relationship Specialty Start Date End Date Iam Garcia MD [address] [place] [address] PCP - General Internal Medicine 09/09/21
--- OUTSIDE RECORDS SUMMARY | 2025-10-21 18:27 | XMS_ITS | Encounter Summary ---
Author Organization [facility] Address [address] [place] [address] Care Team Providers Care Monogram Maker Name Role Phone Iam Garcia MD Primary Care Provider [phone] Reason for Referral * Consultation (Routine) - Closed Specialty Diagnoses / Procedures Referred By Jan coronel Referred To Contact Orthopedic Surgery Diagnoses Arthritis of right knee Chika Vitale NP [address] [place] [address] Phone: tel: fax: [facility] [address] [place] [phone] Phone: tel: fax: Referral ID Status Reason Start Date Expiration Date V isits Requested Visits Authorized [id number] Closed Specialty Services Required 05/01/2025 05/31/2026 1 1 Question Answer Please select the performing region: [facility] [[id number]] Please select the performing department: [facility] [[id number]] # of visits: 1 Comments R knee arthritis and pain Encounter Details Date Type Department Care Team (Late st Contact Info) Description 05/01/2025 Results Follow-Up [facility] [address] [id number] Chika Vitale NP [facility] [place] [address] XR Knee Right 4+ Vw, Hemoglobin A1c, CBC with auto differential, Additional followed-up results: 4 Social History Tobacco Use Types Packs/Day Years Used Date Smoking Tobacco: Never Smokeless Tobacco: Never Alcohol Use Standard Drinks/Week Comments No 0 (1 standard drink = 0.6 oz pur e alcohol) [facility] Utilities Answer Date Recorded In the past 12 months has e [employer], gas, oil, or water [employer] threatened to shut off services in your [...] How often do you attend chur or mu-ism services? More than 4 times per year 04/24/2025 Do you belong to any clubs o r organizations such as christianity groups, unions, fraternal or athletic groups, or [...] staff should administer the PHQ-9) 0 04/24/2025 [facility] Occupat ional [facility] - Occupational Stress Questionnaire Answer Date Recorded [...] any time in the past 12 m [facility], were you homeless or living in a retirement (including now)? 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 Never 06/25/2025 3:17 PM CDT Gladys Chatterjee M A * BP Location Answer Date of Assessment Author Left arm 09/23/2025 11:09 AM Kamilla Mccabe MA documented as of this encounter Ordered Prescriptions Prescription Sig Dispense Quantity Refills Last Filled Start Date End Date meloxicam (MOBIC) 15 mg tabletIndications: Osteoarthritis Take 1 tablet (15 mg total) by mouth daily 30 tablet 11 05/01/2025 6 diclofenac sodium (VOLTAREN) 1 % gelIndications:Ost eoarthritis of the Knee Apply 4 g topically 4 (four) times a day 200 g 05/01/2025 5 documented in this encounter Miscellaneous Notes * Telephone Encounter - Debbie Carbaajl MA - 05/01/2025 9:08 AM CDT Chika documented in this encounter Plan of Treatment Scheduled Referrals Name Type Priority Associated Diagnoses Order Schedule Ambulatory referral to Orthopedic Surgery Outpatient Referral Routine Arthritis of right knee Expected: 05/15/2025 (Approximate), Expires: 05/01/2026 documented as of this encounter Visit Diagnoses Diagnosis Arthritis of right knee- Primary documented in this encounter Care Teams Monogram Maker Relationship Specialty Start Date End Date Iam Garcia MD [address] [place] [address] PCP - General 02/03/17 documented as of this encounter
--- NOTE | 2025-10-21 19:17 | ED.EXTPRO ---
HPI - Extremity Problem General Chief complaint: Extremity Problem,Nontraumatic Stated complaint: Right Hand and Neck Swelling Time Seen by Provider: 10/21/25 19:17 Source: patient, RN notes reviewed and old records reviewed Mode of arrival: ambulatory Limitations: no limitations History of Present Illness HPI Narrative: 60 year old female who presents to express care with complaints of pain to her right hand with stiffness to the middle finger and some complaints of some swelling dorsal aspect of hand near third proximal hand since . Patient reports that she was seen here on 10/03/2025 and received Medrol dose pack which helped her swelling and discomfort to her hand. Patient reports that she also has some swelling to the bilateral aspect of her neck soft tissue area with no decrease in range of motion to neck. Patient reports that she took 2 Aleve this morning which did help her discomfort. Patient reports that she has appointment with her PCP on Monday. MD Complaint: other (right hand pain and swelling with stiffness. also swelling to sides of neck soft tissue) Onset (ago): week(s) (reports since approximately 2.5 weeks.) Severity scale (1-10): 3 Quality: aching and other (stiffness with some swelling) Related Data Home Medications ?Medication ?Instructions ?Recorded ?Confirmed ?Last Taken ?Type atorvastatin 20 mg tablet mg 09/15/25 Unknown History metformin 500 mg tablet,extended mg PO 09/15/25 Unknown History release 24 hr sitagliptin phosphate 100 mg mg 09/15/25 Unknown History tablet (Januvia) Allergies Allergy/AdvReac Type Severity Reaction Status Date / Time Penicillins Allergy Mild Rash Verified 10/21/25 18:23 Review of Systems Review of Systems: CONSTITUTIONAL: Denies fever, chills, or sweats. EYES: Denies visual changes, redness, or discharge. ENT: Denies rhinorrhea, congestion, sore throat, or otalgia. CARDIOVASCULAR: Denies chest pain, palpitations, or edema. RESPIRATORY: Denies cough or dyspnea. GASTROINTESTINAL: Denies abdominal pain, nausea, vomiting, or diarrhea. GENITOURINARY: Denies dysuria or hematuria. SKIN: Denies rash or itching. MUSCULOSKELETAL: Denies back pain, positive for swelling and stiffness to 3rd finger right hand with some dorsal hand swelling near joint. + myalgia some soft tissue swelling to bilateral neck. NEUROLOGIC: Denies headache, numbness, or weakness. PSYCHIATRIC: Denies anxiety or depression. All systems reviewed & are unremarkable except as noted in HPI and below PMFSH Past Medical History Medical History Elevated serum cholesterol Diabetes Asthma Arthritis Surgical History Surgical History History of cholecystectomy Social History Social History (Updated 10/24/25 @ 08:49 by Celena Umaña APRN) Smoking status: Never smoker Alcohol intake: unknown Substance use type: does not use Living arrangements: with family Gender identity (if verbalized by the patient): Female Comments At time of signature, agree with nursing past medical, surgical, social and family history. There is no relevant family history pertinent to the presenting complaint Exam Narrative: GENERAL: Well-appearing, well-nourished, and in no acute distress. HEAD: Normocephalic, atraumatic. EYES: PERRLA and EOMI. ENT: Nares clear, no rhinorrhea or epistaxis. Mucous membranes moist. NECK: Supple.no lymphadenopathy some soft tissue swelling to sides of neck with full ROM CHEST: Clear to auscultation. No respiratory distress.SAO2 98% on room air HEART: Regular rate and rhythm. No murmur heard. Normal peripheral pulses. ABDOMEN: Soft, nontender, nondistended, normal active bowel sounds. EXTREMITIES: Normal range of motion. No edema.Exception noted to right hand with swelling around 3rd knuckle dorsal distal hand with stiffness reported, states has arthritis in hands SKIN: Warm, dry, no rash. NEURO: No focal deficits. Alert and oriented x3. Course Course Level of Care: Express Care Visit Vital Signs Vital signs: Vital Signs Temperature 36.2 C L 10/21/25 18:19 Pulse Rate 60 10/21/25 18:19 Respiratory Rate 20 10/21/25 18:19 Blood Pressure 168/88 H 10/21/25 18:19 Pulse Oximetry 98 10/21/25 18:19 Oxygen Delivery Room Air 10/21/25 18:19 Temperature 36.2 C L 10/21/25 18:19 Pulse Rate 60 10/21/25 18:19 Respiratory Rate 20 10/21/25 18:19 Blood Pressure 168/88 H 10/21/25 18:19 Pulse Oximetry 98 10/21/25 18:19 Oxygen Delivery Room Air 10/21/25 18:19 reviewed MDM MDM Narrative Medical decision making narrative: 60 year old female with stated flare of her arthritis to her right hand specifically 3rd finger with stiffness requesting Medrol dose pack does have follow up appointment with PCP next week. Patient has some soft tissue swelling to bilateral sides of neck with full ROM of neck. Patient is appropriate for outpatient care and follow up. Anticipatory guidance and reviewed reasons to seek care in ED reviewed with patient and family member with understanding voiced. Differential Diagnosis Differential Diagnosis: Differential diagnostic considerations for upper extremity injury include sprain/strain of wrist, fracture of wrist, finger sprain, dislocation of finger, fracture of hand, dislocation of shoulder, fracture of humerus, fracture of clavicle, laceration, tendon injury, carpal tunnel syndrome.arthritis Critical Care Time Critical Care Time Critical Care Time: No Discharge Plan Discharge Clinical Impression: Stiffness of right hand joint, Neck discomfort Patient Disposition: Home Condition: Stable Instructions: Arthralgia (ED) Additional Instructions: Tylenol arthritis strength 650 mg every 8 hours for pain control Warm compresses as needed Follow-up with PCP if further problems or concerns Ice to the area 20-30 minutes 4-6 times a day Elevate above heart May try James Arellano with Lidocaine apply ointment to her hand and to neck area prn If your symptoms persist, change or worsen significantly before you can contact your personal physician then please, without delay, go to the emergency department for further evaluation. Follow-up with PCP in 7-10 days or sooner if needed Follow up with PCP soon in regards to your blood pressure which is elevated above threshold for referral. Blood pressure above 120/80 may indicate pre-hypertension. with 168/88 Patient Language: Omani Prescriptions: No Action atorvastatin 20 mg tablet metformin 500 mg tablet extended release 24 hr PO Januvia 100 mg tablet Follow-up/Referrals: Harms,Iam Fernandez M.D. [Primary Care Provider] Time of Disposition: 19:33 Quality [place] Coma Scale Eyes: Open Verbal: Oriented and Alert Motor: Follows Commands [place] Coma Total Score: 15
== END 2025-10-21 19:40 | disposition home or self-care (01) ==
PROVIDERS: Emergency Provider Registered Nurse; PCP Family Medicine
DX: M25.641 Stiffness of right hand, not elsewhere classified (principal); M54.2 Cervicalgia; E11.9 Type 2 diabetes mellitus without complications; Z79.85 Long-term (current) use of injectable non-insulin antidiabetic drugs; E78.00 Pure hypercholesterolemia, unspecified; M19.90 Unspecified osteoarthritis, unspecified site; J45.909 Unspecified asthma, uncomplicated
CPT/HCPCS: 99211; G0463